=== PATIENT | male | born 1945 | race Caucasian/White ===

== ENCOUNTER 2020-04-10 09:45 | Emergency (ER) | payer MEDICARE, BC, SELFPAY ==
[2020-04-10] VITALS (7 sets, daily range): BP systolic 134–159; BP diastolic 71–87; PULSE 59–66; RESP 17–22; TEMP 36.6; O2SAT 96–98
--- NOTE | ~2020-04-10 | XR_ITS ---
EXAMINATION: XR chest 1V portable DATE: 04/10/2020 11:02 INDICATION: Chest pain. TECHNIQUE: A single frontal view of the chest was obtained. COMPARISON: Chest single view 07/01/2017, chest CT 12/22/2014 FINDINGS: There is no pneumonia or pneumothorax. There is a chronic small left pleural effusion. Card iomegaly is noted. Median sternotomy wires are noted. IMPRESSION: 1. Chronic small left pleural effusion. 2. Cardiomegaly. Reviewed, dictated and finalized at location A.
--- NOTE | 2020-04-10 10:21 | ECG_ITS ---
Measurements Intervals [place] Rate: 66 P: -12 VT: 191 QRS: -56 QRSD: 128 T: 71 QT: 407 QTc: 429 Interpretive Statements SINUS RHYTHM LEFT ANTERIOR FASCICULAR BLOCK BORDERLINE ST-T WAVE ABNORMALITY- HIGH LATERAL LEADS ABNORMAL ECG Electronically Signed On 04-10-2020 11:11:30 CDT by Anjel Murray D.O.
[2020-04-10] MEDS: LIDOCAINE HCL 2% VISC SOLN 15 ML UDC 20 ML PO (11:39)
[2020-04-10] MEDS: MAG HYDROX/AL HYDROX/SIMETH 30 ML UDC PO (11:39)
--- NOTE | 2020-04-10 11:43 | ED.CHESTPAIN ---
HPI - Chest Pain General Chief Complaint: Chest Pain Stated Complaint: chest pain Time Seen by Provider: 04/10/20 10:10 Source: patient, family and old records reviewed Mode of arrival: ambulatory Limitations: no limitations History of Present Illness HPI narrative: Patient is a 74-year-old male who presents with right-sided chest pain and discomfort now for over a week that is remained constant for the last 48 hours patient denies similar occurrence in the past notes that he did have a normal cardiac catheterization in 2018 and is followed by cardiology at [facility]. Patient notes that in the past he had had a incidence that was found to be gas pains as a similar occurrence potentially. Pain comes and goes and radiates to the back. Patient denies any dyspnea injury trauma or recent illness and is resting comfortably in the room otherwise in no distress upon arrival Related Data Home Medications Medication Instructions Recorded Confirmed albuterol sulfate 90 mcg/actuation 1 inhalation INHALATION Q4H 06/12/19 12/10/19 aerosol inhaler ascorbic acid (vitamin C) 1,000 mg 1 gm PO DAILY 06/12/19 12/10/19 tablet aspirin 325 mg tablet 325 mg PO DAILY 06/12/19 12/10/19 calcium carbonate 600 mg calcium 600 mg PO DAILY 06/12/19 12/10/19 (1,500 mg) tablet ergocalciferol (vitamin D2) 10 mcg 400 unit PO DAILY 06/12/19 12/10/19 (400 unit) tablet multivitamin 1 tablet PO DAILY 06/12/19 12/10/19 mirabegron 50 mg tablet,extended 50 mg PO DAILY 06/13/19 12/10/19 release 24 hr Allergies Allergy/AdvReac Type Severity Reaction Status Date / Time midazolam Allergy Severe HALLUCINATI Verified 04/10/20 11:21 ONS amitriptyline Allergy Unknown unknown Verified 04/10/20 11:21 hydrocodone Allergy Unknown unknown Verified 04/10/20 11:21 tramadol Allergy Unknown Itching Verified 12/10/19 08:35 Review of Systems Review of Systems: All systems reviewed & are unremarkable except as noted in HPI and below PMFSH Past Medical History Medical History (Updated 04/10/20 @ 13:47 by Bravo Gore PA-C) Adult hypothyroidism Chest pain COPD (chronic obstructive pulmonary disease) HERACLIO (obstructive sleep apnea) Surgical History Surgical History (Updated 04/10/20 @ 11:44 by Bravo Gore PA-C) History of cardiac catheterization Family History Family History Father Family history of heart disease in male family member before age 55 Diabetes mellitus Family history of coronary artery disease Mother Family history of heart disease in male family member before age 55 Diabetes mellitus Family history of bronchitis Family history of coronary artery disease Family history of malignant neoplasm of breast in first degree relative Sibling Patient's sister is in good health Family history of coronary artery disease Social History Social History Smoking status: Former smoker Smoking end date: 06/27/74 Alcohol intake: current Gender identity (if verbalized by the patient): Male Exam Narrative: Exam Narrative: GENERAL: Well-appearing, well-nourished, and in no acute distress. HEAD: Normocephalic, atraumatic. EYES: PERRLA and EOMI. ENT: Nares clear, no rhinorrhea or epistaxis. Mucous membranes moist. Oropharynx without tonsillar hypertrophy exudate or other lesions. NECK: Supple. No adenopathy or masses. No carotid bruits or JVD CHEST: Clear to auscultation. No respiratory distress. No wheezes rales or rhonchi HEART: Regular rate and rhythm. No murmur heard. Normal peripheral pulses. ABDOMEN: Soft, nontender, nondistended EXTREMITIES: Normal range of motion. 1+ edema lower extremities SKIN: Warm, dry, no rash. NEURO: No focal deficits. Alert and oriented x3. Cranial nerves II through XII grossly intact PSYCH: Normal mood and affect. Course Course Emergency Course: Patient
[2020-04-10 12:04] LABS: Basophils Percent Auto 0.4 % (0.2-1.2); Eosinophils Absolute Auto 0.3 K/mm3 (0-0.3); Eosinophils Percent Auto 4.1 % (0-4.4); Hematocrit 37.1 % (42.0-52.0); Hemoglobin 12.3 g/dL (14.0-18.0); Immature Granulocyte Absolute 0.03 K/mm3 (0.00-0.031); Immature Granulocyte Percent A 0.4 % (0-0.5); Lymphocytes Absolute Auto 2.05 K/mm3 (0.9-3.2); Lymphocytes Percent Auto 25.7 % (18.3-44.2); Mean Corpuscular HGB Conc 33.2 g/dl (32-36); Mean Corpuscular Hemoglobin 29.4 pg (26-34); Mean Corpuscular Volume 88.5 fl (80-100); Monocytes Absolute Auto 0.7 K/mm3 (0.1-0.6); Monocytes Percent Auto 8.3 % (2.6-8.5); Neutrophils Absolute Auto 4.9 K/mm3 (1.3-6.7); Neutrophils Percent Auto 61.1 % (45.5-73.1); Platelet Count Result 242 k/mm3 (150-375); Red Blood Count 4.19 M/mm3 (4.6-6.20); Red Cell Distribution Width 13.7 % (11.5-14.5)
[2020-04-10 12:15] LABS: Partial Thromboplastin Time 26.2 SECONDS (22.3-36.8); Prothrombin Time 13.3 Seconds (11.1-14.7)
[2020-04-10 12:17] LABS: Alanine Aminotransferase 16 U/L (4-50); Albumin Level 4.2 g/dL (3.5-5.1); Alkaline Phosphatase 69 U/L (38-126); Anion Gap 10 mmol/L (8-16); Aspartate Amino Transferase 16 U/L (17-59); Bilirubin,Total 0.5 mg/dL (0.2-1.3); Blood Urea Nitrogen 20 mg/dL (9-20); Calcium 9.6 mg/dL (8.4-10.2); Carbon Dioxide 25 mmol/L (22-30); Chloride 102 mmol/L (98-107); Estimated CRCL calculation 67 ml/min; Estimated Glomerular Filt Rate > 60; Glucose 126 mg/dL (75-110); Lipase 13 U/L (23-300); Potassium 4.7 mmol/L (3.4-5.0); Sodium 137 mmol/L (137-145)
[2020-04-10 12:18] LABS: D Dimer 0.48 ug/mL (<0.48)
[2020-04-10 12:28] LABS: NT Pro B Type Natriuretic Pept 552 PG/ML (5-100); Troponin I < 0.012 ng/mL (0.000-0.034)
[2020-04-10 12:57] LABS: Add Urine Microscopic? YES; Appearance Urine Clear (Clear); Bilirubin Urine Negative (Negative); Blood Urine Negative (Negative); Color Urine Yellow (Yellow); Glucose Urine UA Negative (Negative); Ketones Urine Trace mg/dL (Negative); Leukocyte Esterase Ur Negative LEU/UL (Negative); Mucus Urine Rare /lpf; Nitrate Urine Negative (Negative); Protein Urine Negative (Negative); RBC Urine 0-2 /hpf (0-2); Specific Grav Ur 1.027 (1.001-1.035); WBC Urine 0-3 /hpf
== END 2020-04-10 14:05 | disposition home or self-care (01) ==
PROVIDERS: Emergency Medicine Emergency Medical Services; Emergency Provider Emergency Medicine; PCP Internal Medicine
DX: R07.9 Chest pain, unspecified (principal); Z79.82 Long term (current) use of aspirin; E03.9 Hypothyroidism, unspecified; J44.9 Chronic obstructive pulmonary disease, unspecified; G47.33 Obstructive sleep apnea (adult) (pediatric); Z87.891 Personal history of nicotine dependence; I51.7 Cardiomegaly; I44.4 Left anterior fascicular block; R94.31 Abnormal electrocardiogram [ECG] [EKG]
CPT/HCPCS: 36415; 71045; 80053; 81001; 83690; 83880; 84484; 85025; 85380; 85610; 85730; 93005; 99284; A9270

== ENCOUNTER 2021-09-18 08:00 | Outpatient (RCR) | payer MEDICARE, BC, SELFPAY ==
[2021-09-18] MEDS: diphenhydrAMINE HCl CAP 25 MG CAPSULE PO (13:56)
[2021-09-18] MEDS: FAMOTIDINE 20 MG TABLET PO (13:56)
[2021-09-18] MEDS: ACETAMINOPHEN 325 MG TABLET 650 MG PO (13:56)
[2021-09-18 14:03] VITALS: BP 142/56; PULSE 71; TEMP 37.3; O2SAT 97
[2021-09-18 15:33] VITALS: BP 126/67; PULSE 76; O2SAT 97
== END 2021-09-18 16:00 ==
LOC: AMCINF 08:00
PROVIDERS: PCP Internal Medicine; Referring Provider Internal Medicine; Visit Provider Internal Medicine Hematology & Oncology
DX: U07.1 COVID-19 (principal); E11.9 Type 2 diabetes mellitus without complications
CPT/HCPCS: A9270; M0247; Q0247

== ENCOUNTER 2022-08-27 11:32 | Outpatient (CLI) | payer MEDICARE, BC, SELFPAY ==
--- NOTE | ~2022-08-27 | MR_ITS ---
EXAMINATION: MR brain/brain stem wo/w con DATE: 08/27/2022 12:57 INDICATION: Cognitive changes. Altered mental status. Weakness. TECHNIQUE: Magnetic resonance imaging (MRI) of the brain and brainstem was performed without and with 19 mL MultiHance intravenous contrast. COMPARISON: Head CT 04/04/2017 FINDINGS: There are scattered areas of nonspecific increased T2-weighted signal intensity in the cere bral white matter. There is no intracranial hemorrhage, acute infarction, or abnormal intracranial ma ss lesion. The ventricles are normal in size. Cavum septum pellucidum is noted. There is mild mucosal thickening in the paranasal sinuses. There are small mastoid effusions. There are likely changes of ocular lens replacement surgeries. IMPRESSION: 1. Mild nonspecific cerebral white matter disease, which likely represents chronic small vessel ische bishnu disease. Reviewed, dictated and finalized at location A. RUCTIONAL DEVELOPER IMPRESSION: 1. 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
--- NOTE | ~2022-08-27 | CT_ITS ---
EXAMINATION: CT chest abdomen pelvis w con DATE: 08/27/2022 12:16 INDICATION: Weight loss. TECHNIQUE: Computed tomography (CT) of the chest, abdomen, and pelvis was performed with 100 mL Omnip aque 350 intravenous contrast. Automated exposure control and iterative reconstruction technique were employed. The dose-length product was 1468.93 mGy-cm. COMPARISON: Chest CT 12/22/2014, CT abdomen and pelvis 11/21/08 FINDINGS: CHEST CT: There are moderate-sized right and small left pleural effusions. There is dependent atelectasis on th e right. There are calcified pleural plaques bilaterally. There is pleural thickening on the left. Ca rdiomegaly is noted. There are coronary artery calcifications. No pericardial effusion. There are cole nges of coronary artery bypass grafting. There are bridging endplate osteophytes at multiple levels i n the spine, consistent with diffuse idiopathic skeletal hyperostosis (DISH). There is moderate thora cic spondylosis. ABDOMEN/PELVIS CT: The liver is normal. There are changes of cholecystectomy. Calcifications in the spleen are consisten t with old granulomatous disease. The pancreas, adrenal glands, and kidneys are normal. There is dive rticulosis of the colon without evidence of diverticulitis. There is fat stranding around an epiploic appendage of sigmoid colon, consistent with fat necrosis. The appendix is normal. There are no dilat ed loops of bowel. There are no pathologically enlarged lymph nodes. There is no free intraperitoneal fluid. There is calcified atherosclerosis of the aorta and many of the other arteries. There is no s ignificant stenosis of celiac axis, superior mesenteric artery, the renal arteries, or inferior mesen teric artery. There is severe lower lumbar spondylosis. IMPRESSION: 1. Moderate-sized right pleural effusion. 2. Chronic small left pleural effusion with chronic pleural thickening. Reviewed, dictated and finalized at location A. CONTROL CHEMICAL TECHNICIAN
[2022-08-27 12:09] LABS: Estimated Glomerular Filt Rate 59
== END 2022-08-27 11:33 | disposition home or self-care (01) ==
PROVIDERS: PCP Internal Medicine; Visit Provider Internal Medicine
DX: R63.4 Abnormal weight loss (principal); R41.3 Other amnesia; R41.89 Other symptoms and signs involving cognitive functions and awareness; R93.0 Abnormal findings on diagnostic imaging of skull and head, not elsewhere classified; J90 Pleural effusion, not elsewhere classified
CPT/HCPCS: 70553; 71260; 74177; A9577; Q9967

== ENCOUNTER 2022-09-01 08:46 | Outpatient (CLI) | payer MEDICARE, BC, SELFPAY ==
--- NOTE | ~2022-09-01 | XR_ITS ---
EXAMINATION: XR UGI w small bowel DATE: 09/01/2022 14:03 INDICATION: Nausea with vomiting TECHNIQUE: The patient drank thick barium, gas-producing crystals, and thin barium. Conventional supi ne abdomen radiographs and fluoroscopic spot radiographs of the esophagus, stomach, and proximal smal l bowel were obtained. Additional overhead radiographs were obtained during the transit through the s mall bowel. Spot fluoroscopic images of the small bowel were obtained upon contrast reaching the cec um. A total of 829 fluoroscopic images and 10 overhead radiographs were obtained. Fluoroscopy exposur e time was 1.8 minutes. Total DAP was 89.044 Gycm^2. COMPARISON: CT chest, abdomen and pelvis dated 08/27/2021 FINDINGS: Large amount of coughing patient was given the effervescent crystals for the double contrast portion of the evaluation suggesting there is likely some aspiration but which the absence of with associated medial cannot be confirmed fluoroscopically given the radiolucency of the effervescent liquid. No ev ident laryngeal penetration or aspiration evident on the following swallow performed with thin barium . The esophagus is normal without mass or stricture. Esophageal motility is normal. There is no hiata l hernia. There was no gastroesophageal reflux with provocative maneuvers. The stomach and proximal s mall bowel are normal. Transit time from the stomach to proximal colon was approximately 3 hours and 30 minutes. There is no rmal caliber and mucosal fold pattern throughout the small bowel. Terminal ileum is normal. IMPRESSION: 1. Significant degenerative coughing elicited after swallowing effervescent crystals suggesting this results from aspiration although no subsequent aspiration was observed an following swallows with bar ium. Per discussion with the patient this is atypical. If there is clinical concern for recurrent asp iration could consider a modified swallow study performed in conjunction with speech pathology for fu rther evaluation. 2. Otherwise unremarkable upper GI and small bowel follow-through study. Reviewed, dictated and finalized at location A. ENDER IMPRESSION: 1. Significant degenerative coughing elicited after swallowing effervescent cry stals suggesting this results from aspiration although no subsequent aspiration was observed an following swallows with barium. Per discussion with the patien t this is atypical. If there is clinical concern for recurrent aspiration could consider a modified swallow study performed in conjunction with speech patholo gy for further evaluation. 2. Otherwise unremarkable upper GI and small bowel follow-through study.
== END 2022-09-01 08:47 | disposition home or self-care (01) ==
PROVIDERS: PCP Internal Medicine; Visit Provider Internal Medicine
DX: R11.2 Nausea with vomiting, unspecified (principal); R63.4 Abnormal weight loss; R68.81 Early satiety
CPT/HCPCS: 74240; 74248

== ENCOUNTER 2022-09-27 13:21 | Inpatient (IN) | payer MEDICARE, BC, SELFPAY ==
[2022-09-27] VITALS (11 sets, daily range): BP systolic 125–146; BP diastolic 61–114; PULSE 75–108; RESP 16–40; TEMP 36.7–37.2; O2SAT 95–100
--- NOTE | ~2022-09-27 | XR_ITS ---
EXAMINATION: XR chest 2V DATE: 09/27/2022 14:29 INDICATION: Chest pain and shortness of breath TECHNIQUE: AP and lateral views of the chest are obtained. COMPARISON: 04/10/2020 FINDINGS: Cardiomegaly is noted. There are small pleural effusions. Associated bibasilar airspace [place] cities likely reflect atelectasis. No pneumothorax is identified. There is a mild diffuse interstitia l pattern. Median sternotomy wires and mediastinal surgical clips are seen, likely from prior coronar y artery bypass grafting. There is moderate thoracic spondylosis. IMPRESSION: 1. Cardiomegaly with pulmonary edema. 2. Small pleural effusions with probable associated passive atelectasis of the lung bases. Reviewed, dictated and finalized at location B.
--- NOTE | ~2022-09-27 | XR_ITS ---
EXAMINATION: XR chest 1V portable INDICATION: Pleural effusion TECHNIQUE: Portable AP chest at 0758 hours COMPARISON: 09/28/2022 FINDINGS: Small pleural effusions persist without significant change. No pneumothorax is identified. Cardiomegaly is noted. There is mild atelectasis of the lung bases. Median sternotomy wires and media stinal surgical clips are seen, likely from prior coronary artery bypass grafting. IMPRESSION: 1. Small pleural effusions, stable. Reviewed, dictated and finalized at location B.
--- NOTE | ~2022-09-27 | US_ITS ---
EXAMINATION: US thoracentesis DATE: 09/28/2022 13:58 INDICATION: pleural effusion TECHNIQUE: The procedure and its risks, benefits, and alternatives were discussed with the patient. P otential risks discussed included bleeding, infection, and pneumothorax. The patient understood the r isks and agreed to proceed. The skin was prepped and draped in sterile fashion. 1% lidocaine was used for local anesthesia. Under ultrasound guidance, a 5 Fr catheter with trochar was advanced into the right pleural effusion. Fluid was aspirated. The catheter was removed, and a dressing was applied. Th ere were no immediate complications. FINDINGS: Ultrasound images demonstrate a right pleural effusion and the catheter within the fluid. IMPRESSION: 1. Successful ultrasound-guided thoracentesis yielding 1000 mL of ezra-colored fluid. Reviewed, dictated and finalized at location A. IMPRESSION: 1. Successful ultrasound-guided thoracentesis yielding 1000 mL of ezra-colore d fluid.
--- NOTE | ~2022-09-27 | XR_ITS ---
EXAMINATION: [id number] DATE: 09/28/2022 13:50 INDICATION: Right pleural effusion status post thoracentesis. TECHNIQUE: A single frontal view of the chest was obtained. COMPARISON: Chest 2 views 09/27/2022, chest CT 08/27/2022 FINDINGS: There are small pleural effusions. No pneumonia or pneumothorax. Cardiomegaly is noted. Med iraj sternotomy wires and mediastinal surgical clips are seen, likely from prior coronary artery bypas s grafting. IMPRESSION: 1. Small pleural effusions with improvement on the right status post thoracentesis. Reviewed, dictated and finalized at location A. IMPRESSION: 1. Small pleural effusions with improvement on the right status post thoracente sis.
--- NOTE | 2022-09-27 13:22 | ECG_ITS ---
Measurements Intervals [place] Rate: 82 P: AK: 0 QRS: -52 QRSD: 121 T: 80 QT: 383 QTc: 450 Interpretive Statements ATRIAL FLUTTER/TACHYCARDIA WITH ABERRANT CONDUCTION OR VENTRICULAR PREMATURE COMPLEXES POSSIBLE RIGHT VENTRICULAR CONDUCTION DELAY [RSR (QR) IN V1/V2] LEFT ANTERIOR FASCICULAR BLOCK [QRS AXIS <= -45, QR IN I, RS IN II] POSSIBLE ANTERIOR MYOCARDIAL INFARCTION , OF INDETERMINATE AGE [30 ms Q WAVE IN V3/V4, OR R < 0.2 mV IN V4] COMPARED TO ECG 04/10/2020 10:02:31 ATRIAL FLUTTER NOW PRESENT ABERRANT CONDUCTION OF SUPRAVENTRICULAR BEAT(S) NOW PRESENT Electronically Signed On 09-28-2022 14:58:16 CDT by Elzbieta Stuart M.D.
[2022-09-27 13:55] LABS: Basophils Percent Auto 0.2 % (0.2-1.2); Eosinophils Absolute Auto 0.3 K/mm3 (0-0.3); Hematocrit 38.7 % (42.0-52.0); Hemoglobin 12.1 g/dL (14.0-18.0); Immature Granulocyte Absolute 0.02 K/mm3 (0.00-0.031); Immature Granulocyte Percent A 0.2 % (0-0.5); Lymphocytes Absolute Auto 1.57 K/mm3 (0.9-3.2); Lymphocytes Percent Auto 18.7 % (18.3-44.2); Mean Corpuscular HGB Conc 31.3 g/dl (32-36); Mean Corpuscular Hemoglobin 27.6 pg (26-34); Mean Corpuscular Volume 88.2 fl (80-100); Mean Platelet Volume 10.4 fl (7.4-10.4); Monocytes Absolute Auto 0.8 K/mm3 (0.1-0.6); Monocytes Percent Auto 9.7 % (2.6-8.5); Neutrophils Absolute Auto 5.7 K/mm3 (1.3-6.7); Neutrophils Percent Auto 68.2 % (45.5-73.1); Platelet Count Result 223 k/mm3 (150-375); Red Blood Count 4.39 M/mm3 (4.6-6.20); Red Cell Distribution Width 16.5 % (11.5-14.5); White Blood Count 8.4 K/mm3 (4.5-10.0)
[2022-09-27 14:05] LABS: INR 1.2; Partial Thromboplastin Time 28.6 SECONDS (22.3-36.8); Prothrombin Time 14.7 Seconds (11.1-14.7)
[2022-09-27 14:06] LABS: Alanine Aminotransferase 24 U/L (6-50); Albumin Level 4.4 g/dL (3.5-5.1); Alkaline Phosphatase 99 U/L (38-126); Anion Gap 9 mmol/L (8-16); Aspartate Amino Transferase 28 U/L (17-59); Bilirubin,Total 0.9 mg/dL (0.2-1.3); Blood Urea Nitrogen 14 mg/dL (9-20); Calcium 9.5 mg/dL (8.4-10.2); Carbon Dioxide 28 mmol/L (22-30); Chloride 103 mmol/L (98-107); Estimated CRCL calculation 66 ml/min; Estimated Glomerular Filt Rate > 60; Glucose 107 mg/dL (65-110); Lipase 20 U/L (23-300); Potassium 4.2 mmol/L (3.4-5.0); Sodium 140 mmol/L (137-145)
[2022-09-27 14:18] LABS: Troponin I 0.019 ng/mL (0.000-0.034)
--- NOTE | 2022-09-27 15:40 | ED.CHESTPAIN ---
HPI - Chest Pain General Chief Complaint: Chest Pain Stated Complaint: chest pain x3 days-pleural effusion Time Seen by Provider: 09/27/22 15:31 Source: patient History of Present Illness HPI narrative: 76 years old white male came from home by private car with his complaining of upper chest pain, across the chest, sharp, constant, better laying down flat for the last 3 days. Patient also complaining of shortness of breath on exertion, weight loss for the last 1 to 2 months. Is scheduled for thoracentesis because of large right pleural effusion. He denies any fever, chills, nausea, vomiting, headache or back pain Related Data Home Medications Medication Instructions Recorded Confirmed albuterol sulfate 90 mcg/actuation 1 inhalation inhalation Q4H PRN 06/12/19 09/24/22 aerosol inhaler (ProAir HFA) Dyspnea aspirin 325 mg tablet 325 mg PO DAILY 06/12/19 09/24/22 calcium carbonate 600 mg calcium 600 mg PO DAILY 06/12/19 09/24/22 (1,500 mg) tablet multivitamin 1 tablet PO DAILY 06/12/19 09/24/22 vibegron 75 mg tablet (Gemtesa) 75 mg PO DAILY 12/08/21 09/24/22 mecobalamin (vitamin B12) 1,000 1,000 mcg sublingual DAILY 08/19/22 09/24/22 mcg disintegrating tablet,sublingual ascorbic acid (vitamin C) 1,500 mg 1 tablet PO DAILY 09/24/22 09/24/22 tablet ibuprofen 800 mg tablet See Rx Instructions .Route 09/24/22 09/24/22 .COMPLEX PRN Pain levothyroxine 150 mcg tablet 150 mcg PO HS 09/24/22 09/24/22 (Synthroid) omega-3 fatty acids-vitamin E 2 cap PO BID 09/24/22 09/24/22 1,000 mg capsule ondansetron HCl 8 mg tablet 8 mg PO QID PRN Nausea 09/24/22 09/24/22 Allergies Allergy/AdvReac Type Severity Reaction Status Date / Time amitriptyline Allergy Unknown unknown Verified 09/27/22 15:57 midazolam AdvReac Severe HALLUCINATI Verified 09/27/22 15:57 ONS Review of Systems Review of Systems: All systems reviewed & are unremarkable except as noted in HPI and below PMFSH Past Medical History Medical History Adult hypothyroidism BMI 28.0-28.9,adult BMI 29.0-29.9,adult Chest pain COPD (chronic obstructive pulmonary disease) Encounter to establish care Fatigue Follow up Impaired functional mobility, balance, gait, and endurance Orthostatic hypotension HERACLIO (obstructive sleep apnea) HERACLIO on CPAP Unintentional weight loss Surgical History Surgical History History of cardiac catheterization Family History Family History Father Family history of heart disease in male family member before age 55 Diabetes mellitus Family history of coronary artery disease Mother Family history of heart disease in male family member before age 55 Diabetes mellitus Family history of bronchitis Family history of coronary artery disease Family history of malignant neoplasm of breast in first degree relative Sibling Patient's sister is in good health Family history of coronary artery disease Social History Social History Smoking packs per day: 0.15 Smoking cigarettes per day: 3.0 Years smoked: 15 Smoking pack-years: 2.25 Smoking status: Former smoker Tobacco type: cigarettes Second hand tobacco smoke exposure: No Smoking end date: 06/27/74 Alcohol intake: current Substance use: never Lack of Transportation: No Lack of Food: Never True Current Housing: I Have Housing Concerned About Future Housing: No Difficulty Paying Gas/Electric Bills: No Difficulty Paying for Meds: No Currently Unemployed: No Education: Associate Degree Difficulty w/ Childcare or Family Care: No Gender identity (if verbalized by the patient): Male Exam Narrative: General appearance: Well-developed, well-nourished Skin: Normal color Head: Normocephalic, nontraumatic
[2022-09-27 17:16] LABS: NT Pro B Type Natriuretic Pept 1590 pg/mL (19.9-100)
[2022-09-27 17:18] LABS: Troponin I 0.023 ng/mL (0.000-0.034)
[2022-09-27] MEDS: NITROGLYCERIN OINTMENT 1 INCH DOSE TRANSDERM (17:30)
[2022-09-27] MEDS: FUROSEMIDE INJ 40 MG/4 ML VIAL 60 MG IV PUSH (17:30)
--- NOTE | 2022-09-27 19:22 | PM.IMHP ---
H&P: HPI History of Present Illness Date/Time: 09/27/22 19:22 Chief Complaint: Chest pain for 3 days/pleural effusion Narrative: This is a 76-year-old male patient who has a known pleural effusion and stated that he is due for thoracentesis on . The patient came in by private car with complaints of upper chest pain that is sharp and constant. It is better when he lays flat for the last 3 days. He is short of breath on exertion. He has had a weight loss for the last month or 2. Patient has had a thoracentesis in the past many years ago. He denies any fever chills. His H&H is 12.1 and 38.7. This is his baseline. Troponin is negative x3. BNP is 1590. Chest x-ray was read as cardiomegaly with pulmonary edema. Small pleural effusions with probable associated passive atelectasis of the lung bases. Patient had abdominal pelvis chest CT read on 08/27/2022 as moderate size right pleural effusion. Chronic a small left pleural effusion with chronic pleural thickening. The patient is afebrile here and is oxygen level was anywhere from 98-100% on room air. The patient was given aspirin Lasix and nitro. The patient is being admitted to observation status on the date of service of 09/27/2022 Review of Systems Review of Systems: All systems reviewed & are unremarkable except as noted in HPI and below Constitutional: Constitutional: Reports as per HPI and Reports no additional constitutional complaints Eyes: Eyes: Reports as per HPI and Reports no additional eye complaints ENT: Reports system reviewed and no additional complaints, except as documented and Reports Normal hearing present Cardiovascular: Cardiovascular: Reports no additional cardiovascular complaints Respiratory: Respiratory: Reports no additional respiratory complaints and Reports no additional respiratory complaints Gastrointestinal: Gastrointestinal: Reports as per HPI and Reports no additional gastrointestinal complaints Musculoskeletal: Musculoskeletal: Reports no additional musculoskeletal complaints Integumentary/Breasts: Skin/Breast: Reports system reviewed and no additional complaints, except as docu and Reports as per HPI Neurologic: Reports system reviewed and no additional complaints, except as documented, Reports as per HPI and Reports Normal hearing present Psychiatric: Psychiatric: Reports no additional psychiatric complaints and Reports as per HPI Endocrine: Endocrine: Reports no additional endocrine complaints Hematologic/Lymphatic: Hematologic/Lymphatic: Reports no additional hematologic/lymphatic complaints Allergic/Immunologic: Allergic/Immunologic: Reports no additional allergic/immunologic complaints [facility] Past Medical History Medical History (Updated 09/27/22 @ 23:14 by Jihan Sanches NP) Adult hypothyroidism BMI 28.0-28.9,adult BMI 29.0-29.9,adult Chest pain COPD (chronic obstructive pulmonary disease) Encounter to establish care Fatigue Follow up Impaired functional mobility, balance, gait, and endurance Orthostatic hypotension HERACLIO (obstructive sleep apnea) HERACLIO on CPAP Unintentional weight loss Surgical History Surgical History (Updated 09/27/22 @ 22:54 by Jihan Sanches NP) H/O cataract extraction History of cardiac catheterization History of tonsillectomy History of total bilateral knee replacement (TKR) Hx of cholecystectomy Family History Family History Father Family history of heart disease in male family member before age 55 Diabetes mellitus Family history of coronary artery disease Mother Family history of heart disease in male family member before age 55 Diabetes mellitus Family history of bronchitis Family history of coronary artery disease Family history of malignant neoplasm of breast in first degree relative Sibling Patient's sister is in good health Family history of coronary artery disease Social History Social Hist
--- NOTE | 2022-09-27 19:54 | ADMGEN ---
This patient, Aly Bacon Sr., was admitted to Medical Room 257-01. Patient/family oriented to hospital policies and general routines including ID bracelet, bed and alarms, visiting hours, pain management, procedures, bathroom and other care routines, personal items, smoking policy, room service/diet, and visiting hours. Information on how to activate the Rapid Response Team has been discussed. Patient/Family are encouraged to report perceived risks to care and to ask questions if they do not understand what they are told or what they should do.
[2022-09-27 20:32] LABS: Troponin I 0.028 ng/mL (0.000-0.034)
[2022-09-27] MEDS: FUROSEMIDE INJ 40 MG/4 ML VIAL IV PUSH (20:41)
[2022-09-27] MEDS: ATORVASTATIN 40 MG TABLET 80 MG BY MOUTH (23:52)
[2022-09-27] MEDS: TAMSULOSIN HCL 0.4 MG CAPSULE BY MOUTH (23:52)
[2022-09-28] VITALS (16 sets, daily range): BP systolic 100–124; BP diastolic 63–78; PULSE 72–92; RESP 15–18; TEMP 36.2–36.7; O2SAT 93–97; BMI 29.5
--- NOTE | 2022-09-28 | ECHO_ITS ---
Patient Info Name: Aly Bacon Age: 76 years : 1945 Gender: Male Ht: 69 in Wt: 200 lbs BSA: 2.12 m2 HR: 82 bpm BP: 122 / 70 mmHg Heart Rhythm: Atrial Flutter Exam Date: 09/28/2022 10:01 AM Exam Location: [facility] Pulmonary Patient Status: Inpatient Admit Date: 09/27/2022 Staff Ordering Physician: Jihan Sanches NP Exchange Clerk: Marcelino Wallcae, NIDA, RT Attending Provider: India Sullivan MD Referring Physician: Verónica GOLDSMITH; Exam Type: CA echo dop color flow w con Study Info Indications J90 - Pleural effusion, not elsewhere classified Complete two-dimensional, color flow and Doppler transthoracic echocardiogram is performed. Strain analysis performed. Summary 1. Complete two-dimensional, color flow and Doppler transthoracic echocardiogram is performed. 2. Left ventricular chamber dimension is normal. 3. Left ventricular systolic function is mildly reduced, estimated at 45-50%. 4. There is mildly increased left ventricular wall thickness. 5. Left ventricular septal wall motion is abnormal with septal motion related to a post-operative state. 6. Global longitudinal strain is abnormal at -10 %. 7. Right ventricular systolic function is reduced. 8. Left atrial chamber dimension is moderately enlarged. 9. Right atrial chamber dimension is mildly enlarged. 10. There is moderate mitral valve regurgitation. 11. There is mild tricuspid valve regurgitation. Left Ventricle Left ventricular chamber dimension is normal. Left ventricular systolic function is mildly reduced, estimated at 45-50%. There is mildly increased left ventricular wall thickness. Left ventricular septal wall motion is abnormal with septal motion related to a post-operative state. Global longitudinal strain is abnormal at -10 %. Right Ventricle Right ventricular chamber dimension is normal. Right ventricular systolic function is reduced. Left Atria Left atrial chamber dimension is moderately enlarged. Right Atria Right atrial chamber dimension is mildly enlarged. Atrial Septum Intact interatrial septum visualized by color flow imaging. Aortic Valve The aortic valve is probable trileaflet. There is mild aortic valve sclerosis. There is no aortic valve stenosis. There is no aortic valve regurgitation. Pulmonic Valve The pulmonic valve is not well visualized. Mitral Valve The mitral valve has normal leaflets. There is moderate mitral valve regurgitation. Tricuspid Valve There is mild tricuspid valve regurgitation. Pericardium/Pleural There is no pericardial effusion. Aorta The aortic root size at the sinus of Valsalva is normal. Left Ventricular Outflow Tract Name Value Normal LVOT 2D LVOT Diameter 2.14 cm LVOT Doppler LVOT Peak Gradient 2 mmHg LVOT Mean Gradient 1 mmHg LVOT VTI 10.50 cm LVOT VTI/AV VTI Ratio 0.72 LVOT Stroke Volume 37.63 ml LVOT CO 2.90 l/min LVOT CI 1.36 L/min/
--- NOTE | 2022-09-28 | ECG_ITS ---
Measurements Intervals [place] Rate: 83 P: DE: 0 QRS: -52 QRSD: 134 T: 120 QT: 389 QTc: 458 Interpretive Statements ATRIAL FLUTTER/TACHYCARDIA WITH ABERRANT CONDUCTION OR VENTRICULAR PREMATURE COMPLEXES INTRAVENTRICULAR CONDUCTION DELAY [130+ ms QRS DURATION] COMPARED TO ECG 09/27/2022 13:38:29 NO SIGNIFICANT CHANGES Electronically Signed On 09-28-2022 16:07:35 CDT by Elzbieta Stuart M.D.
[2022-09-28] MEDS: ACETAMINOPHEN 325 MG TABLET 650 MG PO ×4 (01:10→20:01)
[2022-09-28] MEDS: LEVOTHYROXINE SODIUM 150 MCG TABLET PO (05:31)
[2022-09-28 05:50] LABS: Basophils Percent Auto 0.3 % (0.2-1.2); Eosinophils Absolute Auto 0.2 K/mm3 (0-0.3); Eosinophils Percent Auto 2.4 % (0-4.4); Hematocrit 38.5 % (42.0-52.0); Hemoglobin 12.1 g/dL (14.0-18.0); Immature Granulocyte Absolute 0.02 K/mm3 (0.00-0.031); Immature Granulocyte Percent A 0.3 % (0-0.5); Lymphocytes Absolute Auto 1.53 K/mm3 (0.9-3.2); Lymphocytes Percent Auto 21.2 % (18.3-44.2); Mean Corpuscular HGB Conc 31.4 g/dl (32-36); Mean Corpuscular Hemoglobin 26.8 pg (26-34); Mean Corpuscular Volume 85.4 fl (80-100); Mean Platelet Volume 10.4 fl (7.4-10.4); Monocytes Absolute Auto 0.6 K/mm3 (0.1-0.6); Monocytes Percent Auto 8.9 % (2.6-8.5); Neutrophils Absolute Auto 4.8 K/mm3 (1.3-6.7); Neutrophils Percent Auto 66.9 % (45.5-73.1); Platelet Count Result 218 k/mm3 (150-375); Red Blood Count 4.51 M/mm3 (4.6-6.20); Red Cell Distribution Width 16.6 % (11.5-14.5); White Blood Count 7.2 K/mm3 (4.5-10.0)
[2022-09-28 06:02] LABS: Anion Gap 9 mmol/L (8-16); Blood Urea Nitrogen 16 mg/dL (9-20); Calcium 9.3 mg/dL (8.4-10.2); Carbon Dioxide 34 mmol/L (22-30); Chloride 96 mmol/L (98-107); Estimated CRCL calculation 66 ml/min; Estimated Glomerular Filt Rate > 60; Glucose 115 mg/dL (65-110); Magnesium 1.7 mg/dL (1.6-2.3); Potassium 3.7 mmol/L (3.4-5.0); Sodium 139 mmol/L (137-145)
[2022-09-28] MEDS: FLUTICASONE/SALMETEROL 115-21 MCG INHALER 1 PUFF 2 PUFF INHALATION ×2 (07:53→20:53)
[2022-09-28] MEDS: MIDODRINE HCL 2.5 MG TABLET PO ×2 (08:40→17:24)
[2022-09-28] MEDS: FUROSEMIDE INJ 40 MG/4 ML VIAL IV PUSH ×2 (08:40→20:02)
[2022-09-28 08:41] LABS: Glucose Point of Care 119 mg/dl (65-105)
--- NOTE | 2022-09-28 09:14 | PM.CNCAR ---
Assessment and Plan Assessment and plan (1) Atrial flutter by electrocardiogram: Code(s): I48.92 - Unspecified atrial flutter Status: Acute Assessment and Plan: He is in atrial flutter with controlled ventricular rate. This is a new diagnosis; Chronicity is unknown. He denies any history of palpitations, shortness of breath. Since his rate is well controlled already, we will pursue a rate control and anticoagulation strategy. Will start him on Xarelto 20 mg nightly. Echocardiogram shows borderline LVSF, EF 45-50%. He does have reduced RV systolic function. Moderate MR. Outpatient follow-up with his established transformer assembler, Dr. Shaw . Cardiology will sign off at this time. (2) CAD (coronary artery disease): Code(s): I25.10 - Atherosclerotic heart disease of [place] coronary artery without angina pectoris Status: Acute Assessment and Plan: History of coronary artery disease as described in the HPI. He did have an angiogram in 2018 that demonstrated occlusion of all of his upper [place] vessels but patent vein grafts. His coronary disease is stable, his chest pain is very atypical and I do not think that it is related to his coronary disease. No evidence of acute coronary syndrome with negative troponins and EKG without any ST-T wave abnormalities. Continue aspirin, statin. History of Present Illness History of Present Illness Consult date/time: 09/28/22 09:14 Requesting physician: Miriam Alexander MD Consult reason: congestive heart failure Reason For Visit: Chest Pain,CHF,Atrial Flutter w/normal ventricular Narrative: Aly Bacon is a 76 year old male with coronary artery disease status post coronary artery bypass grafting in 2000 (OMID to the LAD, radial artery to the 1st and 2nd marginals, SVG to the RCA). This is a patient who came into the hospital with a chief complaint of chest pain. He states that he has been having right to left sided chest pain for about 4 days. He rates the pain at a 11/10 on the pain scale. He denies any exertional component to his chest pain, states that the onset of this pain occurred when he was inactive and sitting down. Denies any associated shortness of breath, palpitations. Denies any syncope, presyncope, or edema. Is currently, he is lying comfortably in bed and states that the pain has subsided at this point. He has not had any pain since waking up this morning. His telemetry and EKG demonstrate atrial flutter. He denies having any history of arrhythmias. Review of Systems Review of Systems: All systems reviewed & are unremarkable except as noted in HPI and below [facility] Past Medical History Medical History Adult hypothyroidism BMI 28.0-28.9,adult BMI 29.0-29.9,adult Chest pain COPD (chronic obstructive pulmonary disease) Encounter to establish care Fatigue Follow up Impaired functional mobility, balance, gait, and endurance Orthostatic hypotension HERACLIO (obstructive sleep apnea) HERACLIO on CPAP Unintentional weight loss Surgical History Surgical History H/O cataract extraction History of cardiac catheterization History of tonsillectomy History of total bilateral knee replacement (TKR) Hx of cholecystectomy Family History Family History Father Family history of heart disease in male family member before age 55 Diabetes mellitus Family history of coronary artery disease Mother Family history of heart disease in male family member before age 55 Diabetes mellitus Family history of bronchitis Family history of coronary artery disease Family history of malignant neoplasm of breast in first degree relative Sibling Patient's sister is in good health Family history of coronary artery disease Social History Social History (Reviewed 09/28/22 @ 09:18 by
[2022-09-28] MEDS: PERFLUTREN LIPID MICROSPHERES 1.5 ML VIAL DILUTED TO 10 ML TOTAL VOLUME IV PUSH (10:16)
--- NOTE | 2022-09-28 10:16 | IVDEFINITY ---
Prior to administration of IV Definity the patient was educated on the risks and benefits of the imaging enhancing agent including potential adverse side effects. The patient verbalized understanding. Allergies were verified. No exclusion criteria were identified and at least one of the following inclusion criteria were met: 1) physician request, 2) patient technically difficult to image (per the [place] [employer]ocardi[employer] guidelines of two or more segments not discernable within the apical view), or 3) questionable left ventricular function. ?
[2022-09-28 12:07] LABS: Glucose Point of Care 125 mg/dl (65-105)
[2022-09-28 14:13] LABS: pH Pleural Fluid > 7.500 (7.210-7.500)
--- NOTE | 2022-09-28 14:49 | P.PNIM_ITS ---
Progress Note: A&P Assessment and Plan (1) Chest pain at rest: Code(s): R07.9 - Chest pain, unspecified Status: Acute Assessment and Plan: Patient presents to ED on 09/27/2022 with complaints of chest pain that is better with laying down, shortness of breath on exertion, and weight loss for 1- 2 months. * Patient EKG was read as atrial flutter although insert leads it looks like it sinus rhythm. * The patient is not on any anticoagulation and his aspirin has been on hold for him to have a thoracentesis. * Patient was given Lasix and nitro in the emergency room. * His last echo was on 07/02/2017 with an EF of 50%. * Echo has been ordered Revealing EF of 45-50%, abnormal septal wall motion with septal motion related to a postoperative state, global longitudinal strain is abnormal at 10%. * Troponin negative x3 * BNP 1590 * Cardiology has been consulted (2) Atrial flutter by electrocardiogram: Code(s): I48.92 - Unspecified atrial flutter Status: Acute Assessment and Plan: * Repeat EKG showing A-flutter With rate control. * The patient had been on an aspirin but is now on hold for thoracentesis. * His rate is controlled. * Cardiology has been consulted * Cardiology recommending Xarelto 20 mg nightly. (3) CHF (congestive heart failure): Code(s): I50.9 - Heart failure, unspecified Status: Acute Assessment and Plan: * An echo has been ordered * Continue with IV Lasix (4) Pleural effusion on right: Code(s): J90 - Pleural effusion, not elsewhere classified Status: Acute Assessment and Plan: Last month the patient was found have a large right pleural effusion per CT scan in the patient is scheduled to have a thoracentesis this . I did ordered for tomorrow since the patient is in the hospital * Thoracentesis performed on 09/28/2022 * On the CT scan last month that shows a large right pleural effusion. The patient has been unintentionally losing weight. * Pleural fluid pH greater than 7.5. * Patient sees Dr. Montaño at [place]. Will request a consult. (5) COPD (chronic obstructive pulmonary disease): Qualifiers: COPD type: unspecified COPD Qualified Code(s): J44.9 - Chronic obstructive pulmonary disease, unspecified Code(s): J44.9 - Chronic obstructive pulmonary disease, unspecified Status: Acute Assessment and Plan: Continue with albuterol inhaler p.r.n.. Continue with home inhaler (6) HERACLIO (obstructive sleep apnea): Code(s): G47.33 - Obstructive sleep apnea (adult) (pediatric) Status: Acute Assessment and Plan: Continue with CPAP/BiPAP as per home setting (7) Adult hypothyroidism: Code(s): E03.9 - Hypothyroidism, unspecified Status: Acute Assessment and Plan: Check thyroid level continue with levothyroxine (8) Type 2 diabetes mellitus: Qualifiers: Diabetes mellitus complication status: without complication Diabetes mellitus detention insulin use: without detention use Qualified Code(s): E11.9 - Type 2 diabetes mellitus without complications Code(s): E11.9 - Type 2 diabetes mellitus without complications Status: Acute Assessment and Plan: Accu-Cheks AC and HS with sliding scale insulin and hypoglycemic pork (9) Essential hypertension: Code(s): I10 - Essential (primary) hyperten
--- NOTE | 2022-09-28 14:49 | PM.IMPN ---
Progress Note: A&P Assessment and Plan (1) Chest pain at rest: Code(s): R07.9 - Chest pain, unspecified Status: Acute Assessment and Plan: Patient presents to ED on 09/27/2022 with complaints of chest pain that is better with laying down, shortness of breath on exertion, and weight loss for 1-2 months. Patient EKG was read as atrial flutter although insert leads it looks like it sinus rhythm. The patient is not on any anticoagulation and his aspirin has been on hold for him to have a thoracentesis. Patient was given Lasix and nitro in the emergency room. His last echo was on 07/02/2017 with an EF of 50%. Echo has been ordered Revealing EF of 45-50%, abnormal septal wall motion with septal motion related to a postoperative state, global longitudinal strain is abnormal at 10%. Troponin negative x3 BNP 1590 Cardiology has been consulted (2) Atrial flutter by electrocardiogram: Code(s): I48.92 - Unspecified atrial flutter Status: Acute Assessment and Plan: Repeat EKG showing A-flutter With rate control. The patient had been on an aspirin but is now on hold for thoracentesis. His rate is controlled. Cardiology has been consulted Cardiology recommending Xarelto 20 mg nightly. (3) CHF (congestive heart failure): Code(s): I50.9 - Heart failure, unspecified Status: Acute Assessment and Plan: An echo has been ordered Continue with IV Lasix (4) Pleural effusion on right: Code(s): J90 - Pleural effusion, not elsewhere classified Status: Acute Assessment and Plan: Last month the patient was found have a large right pleural effusion per CT scan in the patient is scheduled to have a thoracentesis this . I did ordered for tomorrow since the patient is in the hospital Thoracentesis performed on 09/28/[address] scan last month that shows a large right pleural effusion. The patient has been unintentionally losing weight. Pleural fluid pH greater than 7.5. Patient sees Dr. Montaño at [place]. Will request a consult. (5) COPD (chronic obstructive pulmonary disease): Qualifiers: COPD type: unspecified COPD Qualified Code(s): J44.9 - Chronic obstructive pulmonary disease, unspecified Code(s): J44.9 - Chronic obstructive pulmonary disease, unspecified Status: Acute Assessment and Plan: Continue with albuterol inhaler p.r.n.. Continue with home inhaler (6) HERACLIO (obstructive sleep apnea): Code(s): G47.33 - Obstructive sleep apnea (adult) (pediatric) Status: Acute Assessment and Plan: Continue with CPAP/BiPAP as per home setting (7) Adult hypothyroidism: Code(s): E03.9 - Hypothyroidism, unspecified Status: Acute Assessment and Plan: Check thyroid level continue with levothyroxine (8) Type 2 diabetes mellitus: Qualifiers: Diabetes mellitus complication status: without complication Diabetes mellitus mcc insulin use: without petroleum terminal plant operator use Qualified Code(s): E11.9 - Type 2 diabetes mellitus without complications Code(s): E11.9 - Type 2 diabetes mellitus without complications Status: Acute Assessment and Plan: Accu-Cheks AC and HS with sliding scale insulin and hypoglycemic pork (9) Essential hypertension: Code(s): I10 - Essential (primary) hypertension Status: Acute Assessment and Plan: The patient is on midodrine for orthostatic blood pressure (10) Other and unspecified hyperlipidemia: Code(s): E78.5 - Hyperlipidemia, unspecified Status: Acute Assessment and Plan: Continue with atorvastatin (11) BPH (benign prostatic hyperplasia): Code(s): N40.0 - Benign prostatic hyperplasia without lower urinary tract symptoms Status: Acute Assessment and Plan: Continue with tamsulosin
[2022-09-28 15:53] LABS: Appearance Pleural Fluid Clear (Clear); Color Pleural Fluid Yellow (Colorless); Lymphocytes Pleural Fluid 78 %; Neutrophils Pleural Fluid 7 % (0-25); Pleural fluid source Pleural fluid
[2022-09-28 15:54] LABS: Monocytes Pleural Fluid 15 %; Nucleated Cell Pleural Fluid 494 /uL (0-1000); RBC Pleural Fluid < 2000 /uL (0-0)
[2022-09-28] MEDS: OMEGA 3 POLYUNSAT FATTY ACIDS 1 GM CAP 2 GM PO (17:23)
[2022-09-28] MEDS: RIVAROXABAN 20 MG TABLET PO (17:23)
[2022-09-28 17:28] LABS: Glucose Point of Care 181 mg/dl (65-105)
--- NOTE | 2022-09-28 18:00 | PC.NURSE ---
called to pt's room by , pt states he feels like he is going to pass out sitting on the side of the bed, assisted back to bed, VSS, resting more comfortably once back in bed, reviewed with pt and that he should rest this evening following procedure today, no acute distress noted
[2022-09-28] MEDS: PANTOPRAZOLE 40 MG TABLET PO (20:00)
[2022-09-28] MEDS: TAMSULOSIN HCL 0.4 MG CAPSULE BY MOUTH (20:01)
[2022-09-28] MEDS: ATORVASTATIN 40 MG TABLET 80 MG BY MOUTH (20:07)
[2022-09-28 20:30] LABS: Glucose Point of Care 120 mg/dl (65-105)
[2022-09-29] VITALS (9 sets, daily range): BP systolic 116–126; BP diastolic 62–66; PULSE 72–84; RESP 16–18; TEMP 36.1–36.4; O2SAT 95–96
[2022-09-29 00:13] LABS: Albumin Level 4.3 g/dL (3.5-5.1); Amylase 37 U/L (30-110); Bilirubin,Total 1.1 mg/dL (0.2-1.3); Cholesterol 109 mg/dL (0-200); Glucose 115 mg/dL (65-110); Lactate Dehydrogenase 153 U/L (120-246); Triglycerides 108 mg/dL (<150)
[2022-09-29 00:16] LABS: Hemoglobin A1C 6.1 % (<5.7)
[2022-09-29] MEDS: LEVOTHYROXINE SODIUM 150 MCG TABLET PO (06:06)
[2022-09-29 06:09] LABS: Basophils Percent Auto 0.1 % (0.2-1.2); Eosinophils Absolute Auto 0.3 K/mm3 (0-0.3); Eosinophils Percent Auto 3.3 % (0-4.4); Hemoglobin 13.5 g/dL (14.0-18.0); Immature Granulocyte Absolute 0.04 K/mm3 (0.00-0.031); Immature Granulocyte Percent A 0.5 % (0-0.5); Lymphocytes Absolute Auto 1.53 K/mm3 (0.9-3.2); Lymphocytes Percent Auto 19.3 % (18.3-44.2); Mean Corpuscular HGB Conc 31.4 g/dl (32-36); Mean Corpuscular Hemoglobin 26.8 pg (26-34); Mean Corpuscular Volume 85.3 fl (80-100); Monocytes Absolute Auto 0.7 K/mm3 (0.1-0.6); Monocytes Percent Auto 8.6 % (2.6-8.5); Neutrophils Absolute Auto 5.4 K/mm3 (1.3-6.7); Neutrophils Percent Auto 68.2 % (45.5-73.1); Platelet Count Result 256 k/mm3 (150-375); Red Blood Count 5.04 M/mm3 (4.6-6.20); Red Cell Distribution Width 16.3 % (11.5-14.5); White Blood Count 7.9 K/mm3 (4.5-10.0)
[2022-09-29 06:23] LABS: Alanine Aminotransferase 26 U/L (6-50); Albumin Level 4.7 g/dL (3.5-5.1); Alkaline Phosphatase 119 U/L (38-126); Anion Gap 10 mmol/L (8-16); Aspartate Amino Transferase 33 U/L (17-59); Bilirubin,Total 1.3 mg/dL (0.2-1.3); Blood Urea Nitrogen 16 mg/dL (9-20); Calcium 9.5 mg/dL (8.4-10.2); Carbon Dioxide 34 mmol/L (22-30); Chloride 92 mmol/L (98-107); Estimated CRCL calculation 59 ml/min; Estimated Glomerular Filt Rate > 60; Glucose 119 mg/dL (65-110); Potassium 3.1 mmol/L (3.4-5.0); Sodium 136 mmol/L (137-145)
[2022-09-29 08:15] LABS: Glucose Point of Care 172 mg/dl (65-105)
[2022-09-29] MEDS: FLUTICASONE/SALMETEROL 115-21 MCG INHALER 1 PUFF 2 PUFF INHALATION (08:17)
[2022-09-29] MEDS: OMEGA 3 POLYUNSAT FATTY ACIDS 1 GM CAP 2 GM PO (08:24)
[2022-09-29] MEDS: MIDODRINE HCL 2.5 MG TABLET PO (08:24)
[2022-09-29] MEDS: PANTOPRAZOLE 40 MG TABLET PO (08:24)
[2022-09-29] MEDS: FUROSEMIDE INJ 40 MG/4 ML VIAL IV PUSH (08:25)
[2022-09-29] MEDS: POTASSIUM CHLORIDE INJ 40 MEQ in SODIUM CHLORIDE 0.9% IV 500 ML 100 MEQ IVPB (08:26)
[2022-09-29] MEDS: ACETAMINOPHEN 325 MG TABLET 650 MG PO (08:44)
[2022-09-29] MEDS: SODIUM CHLORIDE 0.9% IV 500 ML 75 ML (08:57)
--- NOTE | 2022-09-29 10:02 | PM.CNPUL ---
Assessment and Plan Assessment and plan (1) Pleural effusion on right: Code(s): J90 - Pleural effusion, not elsewhere classified Status: Acute Assessment and Plan: On 09/28 the patient had a right thoracentesis of 1000 mL of ezra colored fluid. G stain showed many white blood cells, no organisms seen, pH was greater than 7.5, white blood cell count was 494 with a differential of neutrophils 7%, lymphocytes 78%, monocytes 15%. Post procedure chest x-ray demonstrated improved right pleural effusion with a very minimal amount of fluid. 09/29 repeat chest x-ray demonstrates very minimal right pleural effusion so there is no rapidly accumulating right pleural effusion. Remainder of chemistries, microbiology cultures and cytology are pending. From a pulmonary perspective patient is ready to be discharged on these Pulmonary medications: Wixela 250-50 at 1 puff twice a day Rescue albuterol 2 puffs Q 4 hours p.r.n. shortness of breath or wheezing Follow-up in the Pulmonary Clinic with his previously scheduled appointment on 10/06/2022 at 8:30 a.m. Discussed with Suzie Andrade, will sign off, call with questions. (2) HERACLIO (obstructive sleep apnea): Code(s): G47.33 - Obstructive sleep apnea (adult) (pediatric) Status: Acute Assessment and Plan: Split night PSG 12/05/08 - mild sleep apnea, AHI 9.4; titration to CPAP 8cmH2O. CPAP Titration 04/26/16 - recommend CPAP 9cmH2O or APAP 6-15. From clinic note 08/27/22: On APAP [id number]. Download 05/29/22-08/26/22 is showing great compliance, 98% nights used, 82% >4 hours. Avg usage 6.5hrs/night and AHI of 11.6 with avg pressure 14.2cmH2O. AHI is lower compared to previous visit. I have a download from [employer] from 07/01/2022 through 09/28/2022. The patient is on auto PAP 10-20. % of DUs days used greater than 4 hours is 77 of 90 days, 85.6%. Average usage on days used is 6 hours and 47 minutes. Patient's AHI is 12.3, clear airway apnea index 1.9, obstructive airway apnea index 5.4, hypopnea index 5, % of night in periodically breathing is 11.8. Average CPAP is 10.8. Average unintended leak is 19.7, 95th percentile CPAP is 13.8. Patient to follow-up in Pulmonary Clinic. (3) COPD (chronic obstructive pulmonary disease): Qualifiers: COPD type: unspecified COPD Qualified Code(s): J44.9 - Chronic obstructive pulmonary disease, unspecified Code(s): J44.9 - Chronic obstructive pulmonary disease, unspecified Status: Acute Assessment and Plan: Patient carries a history of COPD. PFTs on 05/26/2015 demonstrate an FEV1 of 2.06 L, 71% predicted, FEV1: FVC ratio 77%. Total lung capacity is 4.30 L, 66% predicted and he was unable to perform the DLCO. this is consistent with a mild restrictive ventilatory abnormality Patient has been maintained on with wixela 250-50 at 1 puff b.i.d. and rescue albuterol. Will continue with these. History of Present Illness History of Present Illness Consult date: 09/29/22 Chief complaint: Chest Pain,CHF,Atrial Flutter w/normal ventricular Narrative: 09/29/2022: This is a new pulmonary consult for weight loss and pleural effusions. 76-year-old man with a history of hypothyroidism, obstructive sleep apnea on auto PAP, COPD who is followed in the Pulmonary Clinic and last seen on 08/27/2022. On 08/27/2022 the patient had weight loss, fatigue and was clinically stable on with sella 250-50 at 1 puff b.i.d.. His CAT score was 17. The plan was for him to discontinue Excela and attempt a trial of trilogy samples. He was compliant with his auto PAP 10-20 and he had an Laurier score of 11. The patient was scheduled to have a thoracentesis on 09/29/2022. He tells me that the trelegy inhaler did not provide him with any benefit and he was instructed to [facility] The patient presented to the emergency due room on 09/27/2022 with chest pain that was improved when he laid down. His room air sat
--- NOTE | 2022-09-29 10:19 | P.CDI_ITS ---
CDI Query Clarified Diagnosis Clarified Diagnosis: CHF noted in the assessment and plan. BNP elevated on the 09/27/22 lab work. Chest Xray from 09/27/22 noted pulmonary edema. Patient receiving IV Lasix. Edema noted in the documentation. Please specify type and acuity of heart failure if known. * Acute * Chronic * Acute on Chronic * Unknown * Systolic * Diastolic * Combined Systolic and Diastolic * Unknown
[2022-09-29 11:47] LABS: Glucose Point of Care 135 mg/dl (65-105)
--- NOTE | 2022-09-29 14:02 | P.DS_ITS ---
DS: Admitting Diagnosis Discharge Date 09/29/22 Admitting Diagnosis right pleural effusion, a flutter DS: Discharge Diagnosis Discharge Diagnosis (1) Chest pain at rest: Code(s): R07.9 - Chest pain, unspecified Status: Acute Assessment and Plan: Patient presents to ED on 09/27/2022 with complaints of chest pain that is better with laying down, shortness of breath on exertion, and weight loss for 1- 2 months. * Patient EKG was read as atrial flutter although insert leads it looks like it sinus rhythm. * The patient is not on any anticoagulation and his aspirin has been on hold for him to have a thoracentesis. * Patient was given Lasix and nitro in the emergency room. * His last echo was on 07/02/2017 with an EF of 50%. * Echo has been ordered Revealing EF of 45-50%, abnormal septal wall motion with septal motion related to a postoperative state, global longitudinal strain is abnormal at 10%. * Troponin negative x3 * BNP 1590 * Cardiology has been consulted (2) Atrial flutter by electrocardiogram: Code(s): I48.92 - Unspecified atrial flutter Status: Acute Assessment and Plan: * Repeat EKG showing A-flutter With rate control. * The patient had been on an aspirin but is now on hold for thoracentesis. * His rate is controlled. * Cardiology has been consulted * Cardiology recommending Xarelto 20 mg nightly. (3) CHF (congestive heart failure): Code(s): I50.9 - Heart failure, unspecified Status: Acute Assessment and Plan: * Chronic systolic heart failure * Echo has been ordered Revealing EF of 45-50%, abnormal septal wall motion with septal motion related to a postoperative state, global longitudinal strain is abnormal at 10%. * Continue with IV Lasix (4) Pleural effusion on right: Code(s): J90 - Pleural effusion, not elsewhere classified Status: Acute Assessment and Plan: Last month the patient was found have a large right pleural effusion per CT scan in the patient is scheduled to have a thoracentesis this . I did ordered for tomorrow since the patient is in the hospital * Thoracentesis performed on 09/28/2022 yeilding 1000mL of fluuid * On the CT scan last month that shows a large right pleural effusion. The patient has been unintentionally losing weight. * Pleural fluid pH greater than 7.5. * Patient sees Dr. Montaño at [place]. * Pulmonology recommend follow up as an outpatient. (5) COPD (chronic obstructive pulmonary disease): Qualifiers: COPD type: unspecified COPD Qualified Code(s): J44.9 - Chronic obstructive pulmonary disease, unspecified Code(s): J44.9 - Chronic obstructive pulmonary disease, unspecified Status: Acute Assessment and Plan: Continue with albuterol inhaler p.r.n.. Continue with home inhaler (6) HERACLIO (obstructive sleep apnea): Code(s): G47.33 - Obstructive sleep apnea (adult) (pediatric) Status: Acute Assessment and Plan: Continue with CPAP/BiPAP as per home setting (7) Adult hypothyroidism: Code(s): E03.9 - Hypothyroidism, unspecified Status: Acute Assessment and Plan: Check thyroid level continue with levothyroxine (8) Type 2 diabetes mellitus: Qualifiers: Diabetes mellitus complication status: without complication Diabetes mellitus extermination supervisor insulin use: without extermination supervisor use Qualified Code(s):
--- NOTE | 2022-09-29 14:02 | PM.DS ---
DS: Admitting Diagnosis Discharge Date 09/29/22 Admitting Diagnosis right pleural effusion, a flutter DS: Discharge Diagnosis Discharge Diagnosis (1) Chest pain at rest: Code(s): R07.9 - Chest pain, unspecified Status: Acute Assessment and Plan: Patient presents to ED on 09/27/2022 with complaints of chest pain that is better with laying down, shortness of breath on exertion, and weight loss for 1-2 months. Patient EKG was read as atrial flutter although insert leads it looks like it sinus rhythm. The patient is not on any anticoagulation and his aspirin has been on hold for him to have a thoracentesis. Patient was given Lasix and nitro in the emergency room. His last echo was on 07/02/2017 with an EF of 50%. Echo has been ordered Revealing EF of 45-50%, abnormal septal wall motion with septal motion related to a postoperative state, global longitudinal strain is abnormal at 10%. Troponin negative x3 BNP 1590 Cardiology has been consulted (2) Atrial flutter by electrocardiogram: Code(s): I48.92 - Unspecified atrial flutter Status: Acute Assessment and Plan: Repeat EKG showing A-flutter With rate control. The patient had been on an aspirin but is now on hold for thoracentesis. His rate is controlled. Cardiology has been consulted Cardiology recommending Xarelto 20 mg nightly. (3) CHF (congestive heart failure): Code(s): I50.9 - Heart failure, unspecified Status: Acute Assessment and Plan: Chronic systolic heart failure Echo has been ordered Revealing EF of 45-50%, abnormal septal wall motion with septal motion related to a postoperative state, global longitudinal strain is abnormal at 10%. Continue with IV Lasix (4) Pleural effusion on right: Code(s): J90 - Pleural effusion, not elsewhere classified Status: Acute Assessment and Plan: Last month the patient was found have a large right pleural effusion per CT scan in the patient is scheduled to have a thoracentesis this . I did ordered for tomorrow since the patient is in the hospital Thoracentesis performed on 09/28/2022 yeilding 1000mL of fluuid On the CT scan last month that shows a large right pleural effusion. The patient has been unintentionally losing weight. Pleural fluid pH greater than 7.5. Patient sees Dr. Montaño at [place]. Pulmonology recommend follow up as an outpatient. (5) COPD (chronic obstructive pulmonary disease): Qualifiers: COPD type: unspecified COPD Qualified Code(s): J44.9 - Chronic obstructive pulmonary disease, unspecified Code(s): J44.9 - Chronic obstructive pulmonary disease, unspecified Status: Acute Assessment and Plan: Continue with albuterol inhaler p.r.n.. Continue with home inhaler (6) HERACLIO (obstructive sleep apnea): Code(s): G47.33 - Obstructive sleep apnea (adult) (pediatric) Status: Acute Assessment and Plan: Continue with CPAP/BiPAP as per home setting (7) Adult hypothyroidism: Code(s): E03.9 - Hypothyroidism, unspecified Status: Acute Assessment and Plan: Check thyroid level continue with levothyroxine (8) Type 2 diabetes mellitus: Qualifiers: Diabetes mellitus complication status: without complication Diabetes mellitus shelter insulin use: without terminal operations supervisor use Qualified Code(s): E11.9 - Type 2 diabetes mellitus without complications Code(s): E11.9 - Type 2 diabetes mellitus without complications Status: Acute Assessment and Plan: Accu-Cheks AC and HS with sliding scale insulin and hypoglycemic pork (9) Essential hypertension: Code(s): I10 - Essential (primary) hypertension Status: Acute Assessment and Plan: The patient is on midodrine for orthostatic blood pressure (10) Other and unspecified hyperlipidemia: Code
[2022-09-29 16:30] LABS: Potassium 3.7 mmol/L (3.4-5.0)
[2022-10-03 13:49] LABS: Glucose Pleural Fluid 126 mg/dL; LDH Pleural Fluid 91 U/L; Total Protein Pleural Fluid 3.4 g/dL
[2022-10-04 01:57] LABS: Amylase, Pleural Fluid 11 U/L
[2022-10-06 00:10] LABS: Albumin Pleural Fluid 2.5 g/dL
== END 2022-09-29 17:45 | disposition home or self-care (01) | DRG 313 ==
LOC: ANHED 17:29 → ANH2MED 19:14
PROVIDERS: Nurse Practitioner; Admitting Provider Family Medicine; Emergency Provider Emergency Medicine; PCP Internal Medicine; Visit Provider Internal Medicine Critical Care Medicine
DX: R07.9 Chest pain, unspecified (principal); J90 Pleural effusion, not elsewhere classified; I48.92 Unspecified atrial flutter; I50.22 Chronic systolic (congestive) heart failure; I11.0 Hypertensive heart disease with heart failure; G47.33 Obstructive sleep apnea (adult) (pediatric); I25.10 Atherosclerotic heart disease of native coronary artery without angina pectoris; J44.9 Chronic obstructive pulmonary disease, unspecified; E03.9 Hypothyroidism, unspecified; E11.9 Type 2 diabetes mellitus without complications; N40.0 Benign prostatic hyperplasia without lower urinary tract symptoms; E78.5 Hyperlipidemia, unspecified; Z96.653 Presence of artificial knee joint, bilateral; Z79.82 Long term (current) use of aspirin; Z87.891 Personal history of nicotine dependence; Z90.49 Acquired absence of other specified parts of digestive tract; Z98.49 Cataract extraction status, unspecified eye; Z95.1 Presence of aortocoronary bypass graft
CPT/HCPCS: 32555; 36415; 71045; 71046; 80048; 80053; 82040; 82042; 82150; 82247; 82465; 82945; 82947; 82948; 83036; 83615; 83690; 83735; 83880; 83986; 84132; 84155; 84157; 84311; 84443; 84478; 84484; 85025; 85610; 85730; 87015; 87070; 87075; 87102; 87116; 87205; 87206; 88108; 88184; 88305; 89051; 93005; 94640; 96374; 96375; 99285; A9270; C8929; G0378; J1940; J3480; J7040; Q9957

== ENCOUNTER 2022-11-11 09:42 | Outpatient (CLI) | payer MEDICARE, BC, SELFPAY ==
--- NOTE | ~2022-11-11 | XR_ITS ---
XR chest 2V 11/11/2022 10:07 Indication: Shortness of breath. History of CABG. Procedure: PA and lateral views the chest Comparison: Comparison to multiple prior studies sequentially, with oldest reviewed study dated 03/27. Findings: Left basilar airspace disease may represent atelectasis or pneumonia. Cardiomegaly. Status post median sternotomy for CABG. Small left pleural effusion. Impression: 1: Left basilar airspace disease may represent atelectasis or pneumonia. 2: Small left pleural effusion. Reviewed, dictated and finalized at location L. Impression: 1: Left basilar airspace disease may represent atelectasis or pneumonia. 2: Small left pleural effusion.
== END 2022-11-11 09:43 | disposition home or self-care (01) ==
PROVIDERS: PCP Internal Medicine; Visit Provider Specialist
DX: Z95.1 Presence of aortocoronary bypass graft (principal); M25.462 Effusion, left knee; R91.8 Other nonspecific abnormal finding of lung field
CPT/HCPCS: 71046

== ENCOUNTER 2022-11-18 08:30 | Outpatient (RCR) | payer SELFPAY ==
[2022-10-22 08:10] VITALS: BP 132/60; PULSE 76; RESP 18; O2SAT 96
== END 2022-11-18 10:36 | disposition home or self-care (01) ==
LOC: ANHCPREHAB 08:30
PROVIDERS: PCP Internal Medicine; Visit Provider Internal Medicine
DX: I50.89 Other heart failure (principal)
CPT/HCPCS: 99199

== ENCOUNTER 2022-12-01 09:03 | Outpatient (CLI) | payer MEDICARE, BC, SELFPAY ==
--- NOTE | ~2022-12-01 | XR_ITS ---
Cervical Spine: AP, open-mouth, and lateral views, with neutral, flexion, and extension positioning Clinical History: Pain Findings: The normal lordotic curve is maintained. The vertebral bodies and posterior elements appea r intact. No instability evident on flexion or extension. There is moderate degenerative disc narrowi ng at C5-C6 and C6-C7. There is facet arthropathy most notably at C4-C5, C5-C6, and C6-C7. Pre-verteb ral soft tissues are unremarkable. Impression: Moderate degenerative spondylosis of the lower cervical spine. No fracture or subluxation. No instability evident. Reviewed, dictated and finalized at location . Impression: Moderate degenerative spondylosis of the lower cervical spine. No fracture or subluxation. No instability evident.
== END 2022-12-01 09:04 | disposition home or self-care (01) ==
PROVIDERS: PCP Internal Medicine; Visit Provider Internal Medicine
DX: M47.892 Other spondylosis, cervical region (principal)
CPT/HCPCS: 72050

== ENCOUNTER 2022-12-13 09:25 | Outpatient (CLI) | payer MEDICARE, BC, SELFPAY ==
[2022-12-23 16:55] VITALS: BMI 26.8
--- NOTE | 2022-12-23 16:55 | WPDSLEEPSTUD ---
Sleep Study Date of Study: 12/13/22 Ordering Provider: CESAR Rosales Interpreting Physician: Crista Montaño MD Sleep Study Type: BiPAP Titration Height: 1.78 m Weight: 84.822 kg Body Mass Index: 26.8 Neck Circumference (inches): 19 [place]: 17 Reason for Sleep Study known obstructive sleep apnea, using APAP 10-20 cmH2O, AHI is high at 15.5, avg pressure 10 cm, 3.6% of the night in periodic breathing. Overnight oximetry shows 14 minutes below 88%. He presents for a repeat titraiton. Sleep History Aly Bacon Sr is a 77-year-old man with obstructive sleep apnea since 1998. He ely been on APAP 10-20 cm with an increase in his AHI 15.1. His overnight oximetry showed 14 minutes below 88% saturation with 3.6% of the night spent in periodic breathing. This is why he is having a repeat titration. His has chronic cervical spine pain, diabetes mellitus, hypothyroidism, COPD, orthostatic hypotension, and new atrial flutter. Recently, he has had difficulties with getting quality sleep. In September of 2022 he developed a right pleural effusion with a L of fluid removed. He has had a recent unintentional weight loss of 40 lb. He is always tired, no matter how much sleep her gets. . He rarely awakens from sleep feeling short of breath, rarely wakes up with heartburn, belching or coughing. He snores frequently if he does not use CPAP. When he snores, it is really loud. He does not have difficulty sleeping when he has a cold. He does not wake up gasping for breath at night. He does not have breathing problems at night reported to him by others. He does not sweat excessively at night or notice his heart pounding or beating irregularly at night. He always snores and it is always loud enough that others complain. He does not drive any longer. He occasionally has loss of muscle tone with strong emotion. He does not have daytime difficulties due to excessive sleepiness. He occasionally feels paralyzed on waking or falling asleep. He does not have vivid dreamlike scenes on waking or falling asleep. He does not feel afraid to go to sleep. He does not have nightmares. He does not have any dream recall. He does not have racing thoughts. He does not feel sad or depressed. He occasionally has anxiety. He does not have muscular tension. He has abnormal involuntary movements that cause parts of his body to jerk. He does not kick at night. He does not have crawling or aching feelings in his legs. He denies having leg pain at night. He does not have morning jaw pain and does not grind his teeth during sleep. He always is bothered by pain during the day but never awakened by pain during the night. He does not wake up feeling stiff in the morning, does not wake up with sore or achy muscles. He always wake up with pain in the neck and spine. He has memory problems, fatigue, takes Nexium regularly. Normal bedtime is between 7:30 p.m. and 8:00 p.m., falling asleep instantly waking once to go to the bathroom. He wakes the morning at 7:00 a.m.. His weekend schedule is the same. He takes naps in the afternoon or evening. Short naps are not refreshing. Use drowsy for 3 hours or longer after waking. He feels better in the morning compared to other times of day. Habits: quit tobacco 40 years ago. Caffeine 3-4 cups of coffee and soda daily. No alcohol. No recreational substances. [facility] Past Medical History Medical History Adult hypothyroidism BMI 26.0-26.9,adult BMI 27.0-27.9,adult BMI 28.0-28.9,adult BMI 29.0-29.9,adult Cervicalgia Chest pain COPD (chronic obstructive pulmonary disease) COVID-19 Depression Encounter to establish care Fatigue Follow up Impaired functional mobility, balance, gait, and endurance Obesity Orthostatic hypotension HERACLIO (obstructive sleep apnea) HERACLIO on CPAP Unintentional weight loss Surgical History Surgical History (Reviewed 12/23/22 @ 17:13 by Krista
== END 2022-12-14 08:05 | disposition home or self-care (01) ==
LOC: ANHCSM 09:26
PROVIDERS: PCP Internal Medicine; Visit Provider Physician Assistant
DX: G47.33 Obstructive sleep apnea (adult) (pediatric) (principal)
CPT/HCPCS: 95811

== ENCOUNTER 2023-04-26 01:32 | Day surgery (SDC) | payer MEDICARE, BC, SELFPAY ==
[2023-04-20 11:24] VITALS: BMI 25.9
[2023-04-26 07:52] VITALS: BP 121/85; PULSE 78; RESP 18; TEMP 36.2; O2SAT 99; BMI 25.9
[2023-04-26] MEDS: LACTATED RINGERS 1,000 ML 150 ML IV CONT (08:24)
[2023-04-26 08:25] LABS: Glucose Point of Care 130 mg/dl (65-105)
--- NOTE | 2023-04-26 08:33 | PM.HPGS ---
History of Present Illness History of Present Illness Consent: Risks, benefits, and alternatives have been discussed and questions answered. Patient agrees to proceed with procedure. Chief complaint: anemia,long use of anticoagulants, Narrative: Aly Bacon Sr. is a 77 year old male Presents for both colonoscopy an EGD. Patient reports a decline in appetite. He has had a 30lb weight loss over recent years. Patient has had no bleeding. He is on anticoagulation with Xarelto because of atrial fibrillation. Colonoscopy an EGD requested because of weight loss along with decline in hemoglobin and chronic anticoagulation. Review of Systems Review of Systems: Review of systems noncontributory. [facility] Past Medical History Medical History Adult hypothyroidism Blood loss anemia BMI 26.0-26.9,adult BMI 27.0-27.9,adult BMI 28.0-28.9,adult BMI 29.0-29.9,adult Cervicalgia Chest pain COPD (chronic obstructive pulmonary disease) COVID-19 Depression Encounter to establish care Fatigue Follow up Impaired functional mobility, balance, gait, and endurance Mass of right elbow Obesity Orthostatic hypotension HERACLIO (obstructive sleep apnea) HERACLIO on CPAP Pyogenic granuloma Unintentional weight loss Surgical History Surgical History H/O cataract extraction History of cardiac catheterization History of tonsillectomy History of total bilateral knee replacement (TKR) Hx of cholecystectomy Family History Family History Father Family history of heart disease in male family member before age 55 Diabetes mellitus Family history of coronary artery disease Mother Family history of heart disease in male family member before age 55 Diabetes mellitus Family history of bronchitis Family history of coronary artery disease Family history of malignant neoplasm of breast in first degree relative Sibling Patient's sister is in good health Family history of coronary artery disease Social History Social History Social History: He lives with his . He is retired from [employer] He has 3 children. His is the durable power securities attorney for healthcare full code full code Smoking packs per day: 1 Smoking cigarettes per day: 20.0 Years smoked: 15 Smoking pack-years: 15.00 Smoking status: Former smoker Tobacco type: cigarettes, pipe and cigars Second hand tobacco smoke exposure: No Smoking end date: 11/25/73 Alcohol intake: former Substance use: never Substance use type: does not use Lack of Transportation: No Lack of Food: Never True Current Housing: I Have Housing Concerned About Future Housing: No Difficulty Paying Gas/Electric Bills: No Difficulty Paying for Meds: No Currently Unemployed: No Education: Associate Degree Difficulty w/ Childcare or Family Care: No Living arrangements: with family Gender identity (if verbalized by the patient): Male Spiritual care concerns: No Meds Home Medications and Allergies Home Medications Medication Instructions Recorded Confirmed Type albuterol sulfate 90 mcg/actuation 1 inhalation inhalation Q4H PRN 06/12/19 04/26/23 History aerosol inhaler (ProAir HFA) Dyspnea calcium carbonate 600 mg calcium 600 mg PO DAILY 06/12/19 04/26/23 History (1,500 mg) tablet vibegron 75 mg tablet (Gemtesa) 75 mg PO DAILY 12/08/21 04/26/23 History ascorbic acid (vitamin C) 1,500 mg 1 tablet PO DAILY 09/24/22 04/26/23 History tablet omega-3 fatty acids-vitamin E 2 cap PO BID 09/24/22 04/26/23 History 1,000 mg capsule B12 1,000 mg PO DAILY 09/27/22 04/26/23 History Centrum Men 1 tablet PO DAILY 09/27/22 04/26/23 History Vesicare 10 mg PO HS 09/27/22 04/26/23 History vitamin
--- NOTE | 2023-04-26 08:46 | WPDANESEPPF ---
Anes - Initial Pre Proc Eval Procedure: Operation Date: 04/26/23 09:00 Proposed Procedures p Esophagogastroduodenoscopy & Screening Colonoscopy - Primitivo Pedersen MD Date/Time: 04/26/23 08:46 Surgeon: Primitivo Pedersen MD Pre Op Diagnosis: anemia,long use of anticoagulants, Patient Data Age: 77 Gender: M Height: 1.78 m Weight: 82.1 kg Last Vital Signs Temp 97.1 F L 04/26/23 07:52 Pulse 78 04/26/23 07:52 Resp 18 04/26/23 07:52 BP 121/85 04/26/23 07:52 Pulse Ox 99 04/26/23 07:52 O2 Del Method Room Air 04/26/23 07:52 Allergies Allergy/AdvReac Type Severity Reaction Status Date / Time midazolam Allergy Severe HALLUCINATI Verified 04/26/23 08:00 ONS amitriptyline Allergy Unknown unknown Verified 04/26/23 08:00 Home Medications Medication Instructions Recorded Confirmed Type albuterol sulfate 90 mcg/actuation 1 inhalation inhalation Q4H PRN 06/12/19 04/26/23 History aerosol inhaler (ProAir HFA) Dyspnea calcium carbonate 600 mg calcium 600 mg PO DAILY 06/12/19 04/26/23 History (1,500 mg) tablet vibegron 75 mg tablet (Gemtesa) 75 mg PO DAILY 12/08/21 04/26/23 History ascorbic acid (vitamin C) 1,500 mg 1 tablet PO DAILY 09/24/22 04/26/23 History tablet omega-3 fatty acids-vitamin E 2 cap PO BID 09/24/22 04/26/23 History 1,000 mg capsule B12 1,000 mg PO DAILY 09/27/22 04/26/23 History Centrum Men 1 tablet PO DAILY 09/27/22 04/26/23 History Vesicare 10 mg PO HS 09/27/22 04/26/23 History vitamin E 400 unit PO DAILY 09/27/22 04/26/23 History aspirin 81 mg tablet,delayed 81 mg PO DAILY 10/06/22 04/26/23 History release (Adult Low Dose Aspirin) esomeprazole magnesium 40 mg 40 mg PO BID 90 days #180 caps 11/25/22 04/26/23 Rx capsule,delayed release tamsulosin 0.4 mg capsule See Rx Instructions .Route 11/25/22 04/26/23 Rx .COMPLEX #90 caps rivaroxaban 20 mg tablet (Xarelto) See Rx Instructions .Route 04/07/23 04/26/23 Rx .COMPLEX #90 tabs atorvastatin 40 mg tablet 40 mg PO HS 04/20/23 04/26/23 History fluticasone fur. 100 mcg-umeclid 1 inh inhalation DAILY 04/20/23 04/26/23 History 62.5 mcg-vilant 25 mcg inhalat.powder (Trelegy Ellipta) levothyroxine 150 mcg tablet See Rx Instructions .Route 04/20/23 04/26/23 Rx (Synthroid) .COMPLEX #90 tabs liraglutide 0.6 mg/0.1 mL (18 mg/3 1.8 mg subcut DAILY 04/20/23 04/26/23 History mL) subcutaneous pen injector (Victoza 3-Uday) midodrine 2.5 mg tablet 2.5 mg PO BID 04/20/23 04/26/23 History sitagliptin phosphate 50 1 tablet PO BID 04/20/23 04/26/23 History mg-metformin 1,000 mg tablet (Janumet) Laboratory Tests 04/26/23 08:19 POC Capillary Glucose 130 H mg/dl (65-105) Patient hx anesthesia problems: none Family hx anesthesia problems: none Results Review: All pre-operative results and documents have been reviewed as part of the pre-operative evaluation. [facility] Past Medical History Medical History Adult hypothyroidism Blood loss anemia BMI 26.0-26.9,adult BMI 27.0-27.9,adult BMI 28.0-28.9,adult BMI 29.0-29.9,adult Cervicalgia Chest pain COPD (chronic obstructive pulmonary disease) COVID-19 Depression Encounter to establish care Fatigue Follow up Impaired functional mobility, balance, gait, and endurance Mass of right elbow Obesity Orthostatic hypotension HERACLIO (obstructive sleep apnea) HERACLIO on CPAP Pyogenic granuloma Unintentional weight loss Surgical History Surgical History H/O cataract extraction History of cardiac catheterization History of tonsillectomy History of total bilateral knee replacement (TKR) Hx of cholecystectomy Family History Family History Father Family history of heart disease in male family member before age 55 Diabetes mellitus Family history of anne
--- NOTE | 2023-04-26 09:20 | SUR.OPER ---
EGD stop time 909, Colonoscopy start time 918
[2023-04-26 09:38] VITALS: BP 107/74; PULSE 92; RESP 31; O2SAT 99
[2023-04-26 09:48] VITALS: BP 131/75; PULSE 91; RESP 29; O2SAT 99
[2023-04-26 09:58] VITALS: BP 135/82; PULSE 78; RESP 31; O2SAT 98
[2023-04-26 10:08] VITALS: BP 133/82; PULSE 76; RESP 32; O2SAT 97
== END 2023-04-26 10:28 | disposition home or self-care (01) ==
PROVIDERS: PCP Internal Medicine; Visit Provider Internal Medicine Gastroenterology
PROC: 0DJ08ZZ Inspection of Upper Intestinal Tract, Via Natural or Artificial Opening Endoscopic (ICD-10-PCS; CPT 43235; principal; 2023-04-26 09:00)
DX: D64.9 Anemia, unspecified (principal); D12.2 Benign neoplasm of ascending colon; K64.8 Other hemorrhoids; K57.30 Diverticulosis of large intestine without perforation or abscess without bleeding; R63.4 Abnormal weight loss; Z68.26 Body mass index [BMI] 26.0-26.9, adult; E03.9 Hypothyroidism, unspecified; G47.33 Obstructive sleep apnea (adult) (pediatric); F32.A Depression, unspecified; J44.9 Chronic obstructive pulmonary disease, unspecified; Z87.891 Personal history of nicotine dependence; Z79.51 Long term (current) use of inhaled steroids; Z79.82 Long term (current) use of aspirin; Z79.01 Long term (current) use of anticoagulants; Z79.85 Long-term (current) use of injectable non-insulin antidiabetic drugs; Z79.84 Long term (current) use of oral hypoglycemic drugs
CPT/HCPCS: 45385; 43239; 82948; 87081; 88305; J7120

== ENCOUNTER 2023-05-01 11:19 | Inpatient (IN) | payer MEDICARE, BC, SELFPAY ==
[2023-05-01] VITALS (15 sets, daily range): BP systolic 119–152; BP diastolic 54–74; PULSE 50–103; RESP 15–24; TEMP 36.3–36.6; O2SAT 94–99; BMI 25.9
--- NOTE | ~2023-05-01 | XR_ITS ---
EXAMINATION: XR chest 2V DATE: 05/01/2023 13:17 INDICATION: Shortness of breath TECHNIQUE: AP and lateral views of the chest are obtained. COMPARISON: 11/11/2022 FINDINGS: Cardiomegaly is noted. There is a mild diffuse interstitial pattern. There are small to mod erate-sized pleural effusions. There are bibasilar airspace opacities. There is no pneumothorax. Medi an sternotomy wires and mediastinal surgical clips are seen, likely from prior coronary artery bypass grafting. There is moderate thoracic spondylosis. IMPRESSION: 1. Cardiomegaly with mild pulmonary edema. 2. Pjjpm-[id number] size pleural effusions with bibasilar airspace opacities, atelectasis versus pne umonia. Reviewed, dictated and finalized at location F. PURIFICATION WORKER IMPRESSION: 1. Cardiomegaly with mild pulmonary edema. 2. [id number] size pleural effusions with bibasilar airspace opacities, atelectasis versus pneumonia.
--- NOTE | 2023-05-01 13:06 | ECG_ITS ---
Measurements Intervals [place] Rate: 88 P: AR: 0 QRS: -56 QRSD: 139 T: 91 QT: 374 QTc: 454 Interpretive Statements ATRIAL FLUTTER/TACHYCARDIA WITH VARIABLE BLOCK INTRAVENTRICULAR CONDUCTION DELAY CANNOT RULE OUT SEPTAL INFARCT, AGE INDETERMINATE BORDERLINE ST-T WAVE ABNORMALITY- HIGH LATERAL LEADS ABNORMAL ECG COMPARED TO ECG 09/28/2022 11:05:14 NO SIGNIFICANT CHANGES Electronically Signed On 05-01-2023 16:42:22 BUREAU DIRECTOR by Anjel Murray D.O.
[2023-05-01 13:58] LABS: Basophils Percent Auto 0.2 % (0.2-1.2); Eosinophils Absolute Auto 0.1 K/mm3 (0-0.3); Eosinophils Percent Auto 1.5 % (0-4.4); Hematocrit 36.8 % (42.0-52.0); Hemoglobin 11.2 g/dL (14.0-18.0); Immature Granulocyte Absolute 0.04 K/mm3 (0.00-0.031); Immature Granulocyte Percent A 0.5 % (0-0.5); Lymphocytes Absolute Auto 1.68 K/mm3 (0.9-3.2); Lymphocytes Percent Auto 19.2 % (18.3-44.2); Mean Corpuscular HGB Conc 30.4 g/dl (32-36); Mean Corpuscular Hemoglobin 26.3 pg (26-34); Mean Corpuscular Volume 86.4 fl (80-100); Mean Platelet Volume 10.4 fl (7.4-10.4); Monocytes Absolute Auto 0.9 K/mm3 (0.1-0.6); Neutrophils Percent Auto 68.6 % (45.5-73.1); Platelet Count Result 263 k/mm3 (150-375); Red Blood Count 4.26 M/mm3 (4.6-6.20); Red Cell Distribution Width 17.8 % (11.5-14.5); White Blood Count 8.8 K/mm3 (4.5-10.0)
[2023-05-01 14:09] LABS: INR 1.4; Partial Thromboplastin Time 37.6 SECONDS (22.3-36.8); Prothrombin Time 18.2 Seconds (11.1-14.7)
[2023-05-01 14:13] LABS: Alanine Aminotransferase 20 U/L (6-50); Albumin Level 4.4 g/dL (3.5-5.1); Alkaline Phosphatase 97 U/L (38-126); Anion Gap 9 mmol/L (8-16); Aspartate Amino Transferase 27 U/L (17-59); Bilirubin,Total 1.1 mg/dL (0.2-1.3); Blood Urea Nitrogen 13 mg/dL (9-20); Calcium 9.4 mg/dL (8.4-10.2); Carbon Dioxide 26 mmol/L (22-30); Chloride 99 mmol/L (98-107); Estimated CRCL calculation 76 ml/min; Estimated Glomerular Filt Rate > 60; Glucose 127 mg/dL (65-110); Potassium 4.3 mmol/L (3.4-5.0); Sodium 134 mmol/L (137-145)
[2023-05-01 14:24] LABS: NT Pro B Type Natriuretic Pept 3770 pg/mL (19.9-100); Troponin I 0.033 ng/mL (0.000-0.034)
[2023-05-01] MEDS: FUROSEMIDE INJ 40 MG/4 ML VIAL IV PUSH ×2 (15:00→21:07)
--- NOTE | 2023-05-01 15:01 | ED.GENADULT ---
HPI - General Adult General Chief complaint: Upper Respiratory Infection Stated complaint: dry cough x1 week, edema bilat, sob Time Seen by Provider: 05/01/23 13:52 Source: patient, RN notes reviewed and old records reviewed Mode of arrival: ambulatory Limitations: no limitations History of Present Illness HPI narrative: This is a 77 year old male with history of CABG, CHF, atrial fibrillation who presents for evaluation of cough and shortness of breath. Patient reports dry cough for 1 week and bilateral leg swelling. He is also having shortness of breath with exertion with intermittent chest tightness. He is unsure of weight gain. He reports he is having to sleep in his recliner due to orthopnea. He denies fever or chills. His reports patient has history of CHF, and she also reports patient was in bigem[place] last night. Roll Coverer is Dr. Shaw. Related Data Home Medications Medication Instructions Recorded Confirmed calcium carbonate 600 mg calcium 600 mg PO DAILY 06/12/19 05/01/23 (1,500 mg) tablet vibegron 75 mg tablet (Gemtesa) 75 mg PO DAILY 12/08/21 05/01/23 ascorbic acid (vitamin C) 1,500 mg 1 tablet PO DAILY 09/24/22 05/01/23 tablet omega-3 fatty acids-vitamin E 2 cap PO BID 09/24/22 05/01/23 1,000 mg capsule Vesicare 10 mg PO HS 09/27/22 05/01/23 vitamin E 400 unit PO DAILY 09/27/22 05/01/23 aspirin 81 mg tablet,delayed 81 mg PO DAILY 10/06/22 05/01/23 release (Adult Low Dose Aspirin) atorvastatin 40 mg tablet 40 mg PO HS 04/20/23 05/01/23 fluticasone fur. 100 mcg-umeclid 1 inh inhalation DAILY 04/20/23 05/01/23 62.5 mcg-vilant 25 mcg inhalat.powder (Trelegy Ellipta) liraglutide 0.6 mg/0.1 mL (18 mg/3 1.8 mg subcut DAILY 04/20/23 05/01/23 mL) subcutaneous pen injector (Victoza 3-Uday) midodrine 2.5 mg tablet 2.5 mg PO BID 04/20/23 05/01/23 sitagliptin phosphate 50 1 tablet PO BID 04/20/23 05/01/23 mg-metformin 1,000 mg tablet (Janumet) Centrum Silver Men 1 tablet PO DAILY 05/01/23 05/01/23 cyanocobalamin (vitamin B-12) 1,000 mcg PO DAILY 05/01/23 05/01/23 1,000 mcg tablet fluticasone fur. 100 mcg-umeclid 1 inh inhalation DAILY 05/01/23 05/01/23 62.5 mcg-vilant 25 mcg inhalat.powder (Trelegy Ellipta) ibuprofen 800 mg tablet (IBU) 800 mg PO Q6H PRN arthritic pain 05/01/23 05/01/23 levothyroxine 150 mcg tablet 150 mcg PO HS 05/01/23 05/01/23 (Synthroid) rivaroxaban 20 mg tablet (Xarelto) 20 mg PO 1630 05/01/23 05/01/23 tamsulosin 0.4 mg capsule 0.4 mg PO HS 05/01/23 05/01/23 Allergies Allergy/AdvReac Type Severity Reaction Status Date / Time midazolam Allergy Severe HALLUCINATI Verified 05/01/23 20:38 ONS amitriptyline Allergy Unknown unknown Verified 05/01/23 20:38 Review of Systems Constitutional: Constitutional: Denies weakness Cardiovascular: Cardiovascular: Denies syncope, Denies rapid heart rate, Reports irregular heart rhythm, Reports leg edema and Reports dyspnea Respiratory: Respiratory: Reports chest congestion, Reports cough, Denies hemoptysis, Denies excessive phlegm production and Reports dyspnea Gastrointestinal: Gastrointestinal: Denies abdominal pain, Denies hematochezia, Denies diarrhea and Denies vomiting Genitourinary: Genitourinary: Denies hematuria, Denies dysuria, Denies penile discharge and Denies testicular pain Musculoskeletal: Musculoskeletal: Denies joint swelling, Denies loss of height and Denies muscle weakness Neurologic: Denies syncope, Denies focal weakness and Denies weakness PMFSH Past Medical History Medical History Adult hypothyroidism Blood loss anemia BMI 26.0-26.9,adult BMI 27.0-27.9,adult BMI 28.0-28.9,adult BMI 29.0-29.9,adult Cervicalgia Chest pain COPD (chronic obstructive pulmonary disease) COVID-19 Depression Encounter to establish care Fatigue Follow up Impaired functional mobility, balance, gait, and endurance Mass of right elbow Obesity Orth
[2023-05-01 15:20] LABS: Influenza A QL RT-PCR Negative (Negative); Influenza B QL RT-PCR Negative (Negative); SARS-CoV-2 RNA PCR Negative (Negative)
--- NOTE | 2023-05-01 15:49 | PM.IMHP ---
H&P: HPI History of Present Illness Date/Time: 05/01/23 17:30 Chief Complaint: Shortness of breath. Narrative: This is a very pleasant 77-year-old male with congestive heart failure (echo in September 2022 showing mildly reduced LV systolic function with an estimated EF of 45 to 50% and reduced right ventricular systolic function), coronary artery disease status post bypass, paroxysmal atrial fibrillation on anticoagulation, chronic obstructive pulmonary disease, type 2 diabetes mellitus, benign prostatic hyperplasia, gastroesophageal reflux disease, and hypothyroidism who presented to the emergency department via private vehicle for evaluation of shortness of breath. The patient provides the following history. Over the past 1 week or so he has developed a dry cough, increasing lower extremity edema, and dyspnea on exertion. He is otherwise feeling okay and was initially hesitant to come in for evaluation but his eventually talk him into it. He denies fever, chills, sweats, sinus congestion, sore throat, lightheadedness, dizziness, chest pain, pleuritic pain, palpitations, sensations of racing heart, nausea, vomiting, and calf pain. In the ED: He was afebrile on arrival with stable blood pressures. SpO2 has been in the mid 90s on room air. Labs were significant for a stable/chronic anemia, sodium 134, 0.033, proBNP 3770. Chest x-ray showed cardiomegaly with mild pulmonary edema and small to moderate-sized pleural effusions with bibasilar airspace opacities. EKG showed atrial flutter/tachycardia with variable block and some old findings not significantly changed from prior tracings. He received 40 mg IV furosemide x1 and he is being admitted for further diuresis. Review of Systems Review of Systems: 12 systems were reviewed. He has lost 40 lb in the last 8 months unintentionally. He reports that he just does not have a good appetite. Upper and lower endoscopies per Dr. Pedersen last week were pretty unremarkable. One small benign colon polyp was removed. He has no personal history of malignancy. Except as documented, all other systems were reviewed and are negative. [facility] Past Medical History Medical History (Updated 05/01/23 @ 22:47 by Virginia Estrada PA-C) Benign prostatic hyperplasia Chronic anemia Chronic anticoagulation Chronic obstructive pulmonary disease Depression Hypothyroidism Moderate mitral valve regurgitation Obesity Obstructive sleep apnea treated with BiPAP Orthostatic hypotension Paroxysmal atrial fibrillation Short-term memory loss Surgical History Surgical History (Updated 05/01/23 @ 22:37 by Virginia Estrada PA-C) History of bilateral knee replacement History of cardiac catheterization History of cataract extraction History of cholecystectomy History of colonoscopy with polypectomy History of four vessel coronary artery bypass graft (1998) History of tonsillectomy Family History Family History Father Family history of heart disease in male family member before age 55 Diabetes mellitus Family history of coronary artery disease Mother Family history of heart disease in male family member before age 55 Diabetes mellitus Family history of bronchitis Family history of coronary artery disease Family history of malignant neoplasm of breast in first degree relative Sibling Patient's sister is in good health Family history of coronary artery disease Social History Social History (Updated 05/01/23 @ 22:38 by Virginia Estrada PA-C) Social History: Surrogate medical decision maker: Zarina Bacon, spouse. Code status: Do not resuscitate. Smoking packs per day: 1 Smoking cigarettes per day: 20.0 Years smoked: 25 Smoking pack-years: 25.00 Smoking status: Former smoker Tobacco type: cigarettes, pipe and cigars Second hand tobacco smoke exposure: No Smoking end date: 11/25/73 Alcohol intake: former Substance
--- NOTE | 2023-05-01 18:48 | ADMGEN ---
This patient, Aly Bacon Sr., was admitted to IMU Room 206-02. Patient/family oriented to hospital policies and general routines including ID bracelet, bed and alarms, visiting hours, pain management, procedures, bathroom and other care routines, personal items, smoking policy, room service/diet, and visiting hours. Information on how to activate the Rapid Response Team has been discussed. Patient/Family are encouraged to report perceived risks to care and to ask questions if they do not understand what they are told or what they should do.
[2023-05-02] VITALS (21 sets, daily range): BP systolic 108–139; BP diastolic 59–82; PULSE 60–102; RESP 16–20; TEMP 36.2–37.1; O2SAT 95–100; BMI 25.4
[2023-05-02] MEDS: LEVOTHYROXINE SODIUM 150 MCG TABLET PO ×2 (00:53→20:55)
[2023-05-02] MEDS: OMEGA 3 POLYUNSAT FATTY ACIDS 1 GM CAP 2 GM PO ×3 (00:53→17:49)
[2023-05-02] MEDS: ATORVASTATIN 40 MG TABLET PO ×2 (00:53→20:55)
[2023-05-02] MEDS: PANTOPRAZOLE 40 MG TABLET PO ×3 (00:54→17:49)
[2023-05-02] MEDS: TAMSULOSIN HCL 0.4 MG CAPSULE PO ×2 (00:54→20:55)
[2023-05-02] MEDS: SOLIFENACIN 5 MG TABLET 10 MG PO ×2 (00:55→20:55)
[2023-05-02] MEDS: RIVAROXABAN 20 MG TABLET PO ×2 (00:56→17:53)
[2023-05-02 05:26] LABS: Hematocrit 34.6 % (42.0-52.0); Hemoglobin 10.9 g/dL (14.0-18.0); Mean Corpuscular HGB Conc 31.5 g/dl (32-36); Mean Corpuscular Hemoglobin 26.9 pg (26-34); Mean Corpuscular Volume 85.4 fl (80-100); Mean Platelet Volume 10.3 fl (7.4-10.4); Platelet Count Result 271 k/mm3 (150-375); Red Blood Count 4.05 M/mm3 (4.6-6.20); Red Cell Distribution Width 17.7 % (11.5-14.5); White Blood Count 7.2 K/mm3 (4.5-10.0)
[2023-05-02 05:42] LABS: Anion Gap 9 mmol/L (8-16); Blood Urea Nitrogen 15 mg/dL (9-20); Calcium 9.3 mg/dL (8.4-10.2); Carbon Dioxide 30 mmol/L (22-30); Chloride 93 mmol/L (98-107); Estimated CRCL calculation 76 ml/min; Estimated Glomerular Filt Rate > 60; Glucose 112 mg/dL (65-110); Magnesium 1.7 mg/dL (1.6-2.3); Potassium 3.5 mmol/L (3.4-5.0); Sodium 132 mmol/L (137-145)
--- NOTE | 2023-05-02 08:12 | PM.IMPN ---
Progress Note: A&P Assessment and Plan (1) Acute on chronic systolic (congestive) heart failure: Code(s): I50.23 - Acute on chronic systolic (congestive) heart failure Status: Acute Assessment and Plan: Patient presents with increasing shortness of breath and lower extremity edema for the past week as detailed above. Preliminary workup is consistent with acute on chronic systolic CHF exacerbation. Precipitating etiology unclear. Diuresis with furosemide 40 mg IV b.i.d. Close monitoring of volume status, renal function, and electrolytes. [facility] cardiology consulted per patient request. (2) Atrial fibrillation and flutter: Code(s): I48.91 - Unspecified atrial fibrillation; I48.92 - Unspecified atrial flutter Status: Acute Assessment and Plan: He is rate controlled and is asymptomatic. Continue rivaroxaban for stroke prophylaxis. (3) Chronic anemia: Code(s): D64.9 - Anemia, unspecified Status: Acute Assessment and Plan: Hemoglobin and hematocrit are stable on review of previous labs. (4) Chronic obstructive pulmonary disease: Code(s): J44.9 - Chronic obstructive pulmonary disease, unspecified Status: Acute Assessment and Plan: No evidence to suggest acute exacerbation. Continue maintenance inhalers. (5) Hypothyroidism: Code(s): E03.9 - Hypothyroidism, unspecified Status: Acute Assessment and Plan: Continue levothyroxine and check TSH and free T4. (6) Obstructive sleep apnea treated with BiPAP: Code(s): G47.33 - Obstructive sleep apnea (adult) (pediatric) Status: Acute Assessment and Plan: BiPAP will be provided for the patient to use while hospitalized. (7) Moderate mitral valve regurgitation: Code(s): I34.0 - Nonrheumatic mitral (valve) insufficiency Status: Acute Assessment and Plan: Noted on echo in September 2022. (8) Orthostatic hypotension: Code(s): I95.1 - Orthostatic hypotension Status: Acute Assessment and Plan: Patient has been on midodrine 2.5 mg b.i.d. for quite some time. Continue midodrine for now. Monitor orthostatic vital signs. Plan DVT prophylaxis with xarelto GI prophylaxis not indicated Code status DNR Subjective Date/time seen: 05/02/23 08:12 Interval history: 77-year-old male with congestive heart failure, coronary artery disease status post bypass, paroxysmal atrial fibrillation on anticoagulation, chronic obstructive pulmonary disease, type 2 diabetes mellitus who presented with shortness of breath and is being treated for heart failure exacerbation. No overnight events noted. No nausea, vomiting or diarrhea. No fevers or chills. Review of Systems Review of Systems: 12 point review of systems was assessed and was negative except as noted in the HPI Exam Narrative: General: No acute distress, alert and oriented per baseline HEENT: Atraumatic, normocephalic, mucous membranes moist CV: Regular rate and rhythm, S1, S2 Lungs: Clear to auscultation bilaterally, no rales or crackles noted, no wheezes, good air entry Abdomen: Soft, nontender, nondistended Extremities: Normal to inspection Skin: No rashes noted, no lesions or wounds seen Psych: Euthymic, normal affect Objective Data Vital Signs Vital Signs: Vital Signs - 24 hr 05/01/23 11:26 05/01/23 13:44 05/01/23 14:46 Temperature 97.3 F L Pulse Rate 67 74 75 Respiratory Rate 20 20 20 Blood Pressure 119/63 134/69 123/66 Pulse Oximetry 94 99 96 Oxygen Delivery 05/01/23 15:30 05/01/23 16:14 05/01/23 16:46 Temperature Pulse Rate 76 74 97 Respiratory Rate 20 20 20 Blood Pressure 120/68 124/66 123/70 Pulse Oximetry 96 96 97 Oxygen Delivery 05/01/23 17:01 05/01/23 17:46 05/01/23 18:59 Temperature 97.8 F Pulse Rate 101 H 78 50 L Respiratory Rate 15 20 24 H Blood Pressure 144/58 H 135/74 147/66 H Pulse Ox
[2023-05-02] MEDS: FLUTICASONE/UMECLIDIN/VILANTER 100-62.5-25 MCG ELLIPTA 1 PUFF INHALATION (08:15)
[2023-05-02] MEDS: ACETAMINOPHEN 325 MG TABLET 650 MG PO ×2 (08:59→17:53)
[2023-05-02] MEDS: FUROSEMIDE INJ 40 MG/4 ML VIAL IV PUSH (09:00)
[2023-05-02] MEDS: CALCIUM CARBONATE (OSCAL) 500 MG TABLET PO (09:00)
[2023-05-02] MEDS: ASCORBIC ACID 500 MG TABLET 1500 MG PO (09:00)
[2023-05-02] MEDS: VITAMIN E 400 UNIT CAPSULE PO (09:01)
[2023-05-02] MEDS: CYANOCOBALAMIN 1,000 MCG TABLET 1000 MCG PO (09:01)
[2023-05-02] MEDS: ASPIRIN 81 MG ENTERIC TABLET PO (09:01)
[2023-05-02] MEDS: MULTIVITAMINS /C LUTEIN (CENTRUM SILVER) TABLET *BKC 1 TAB PO (09:01)
--- NOTE | 2023-05-02 14:48 | PM.CNCAR ---
Assessment and Plan Assessment and plan (1) Atrial fibrillation and flutter: Code(s): I48.91 - Unspecified atrial fibrillation; I48.92 - Unspecified atrial flutter Status: Acute (2) CHF (congestive heart failure): Qualifiers: Heart failure chronicity: acute Code(s): I50.9 - Heart failure, unspecified Status: Acute (3) CAD (coronary artery disease): Code(s): I25.10 - Atherosclerotic heart disease of [place] coronary artery without angina pectoris Status: Acute Plan This is a 77-year-old man with chronic coronary artery disease status post surgical revascularization in 1998 he does have mild LV systolic dysfunction and atrial fibrillation as the substrate for his CHF. At baseline he also has been taking midodrine and ibuprofen although he says he uses a lot less of ibuprofen that he has in the past. At this time I would recommend stopping those 2 medications since they will exacerbate heart failure I will start a low dose of Entresto, metoprolol succinate and spironolactone for optimal suppression of his renal angiotensin access. I am going to stop IV furosemide for now since he is euvolemic or at least much better than he was on admission a couple of days ago. Will follow him with you during this hospital stay and arrange for appropriate follow-up after discharge. I do not anticipate any aggressive procedures evaluating his coronary disease as he has selected DNR status. I did discuss this for a while with he and his at the end of this encounter today. Sandeep Shaw MD [facility] History of Present Illness History of Present Illness Consult date/time: 05/02/23 14:48 Reason For Visit: CHF, Chest Pain Narrative: This is a 77-year-old man I am seeing at the request of the hospitalist to assist with the evaluation and management of congestive heart failure. This patient is well-known to me with a history of ischemic heart disease and chronic atrial fibrillation. He was known to my practice back in the when he was found to have multivessel coronary disease with high-grade left main stenosis. He was referred for surgical revascularization and received an OMID graft to the LAD, a radial artery graft sequentially to 2 marginal branches of his circumflex and a saphenous vein graft to the distal right coronary artery. Overall he has done very well since then. He was found to have atrial fibrillation a couple of years ago and was hospitalized here with some weakness and shortness of breath. His AFib was of unknown duration. Holter monitor demonstrated persistent rate controlled AF and he was at that time anticoagulated with Xarelto. An attempt at restoring sinus rhythm was discussed but rate control and anticoagulation were chosen. He most recently had an echocardiogram earlier this year that shows his ejection fraction to be somewhat reduced at 40-45%. He otherwise is feeling relatively well he states that for the last couple of weeks or so before he came into the hospital this past weekend he was noticing worsening shortness of breath and lower extremity edema. He was treated with intravenous furosemide following admission with resolution of his edema his breathing is better. His chest x-ray did show some pulmonary congestion which is increased in comparison to previous x-ray in October of this year. His medical regimen at home consists of ibuprofen as well as midodrine. His PCP started him on midodrine recently because of concerns regarding orthostatic hypotension. He has not had severe difficulty with orthostasis and has not had any syncopal events. He was not on any medication at all for heart failure at baseline. His renal function is normal and he is modestly anemic. Review of Systems Constitutional: Constitutional: Reports fatigue Eyes: Eyes: Reports no additional eye complaints ENT: Reports system reviewed and no additional complaints, except as documented Cardiovascular:
[2023-05-02] MEDS: SACUBITRIL/VALSARTAN 24-26 MG TABLET 1 TAB PO (20:55)
[2023-05-03] VITALS (9 sets, daily range): BP systolic 112–120; BP diastolic 61–66; PULSE 73–97; RESP 18; TEMP 36–36.4; O2SAT 96–98
--- NOTE | 2023-05-03 04:52 | ECG_ITS ---
Measurements Intervals [place] Rate: 73 P: [place]: 0 QRS: -55 QRSD: 131 T: 122 QT: 410 QTc: 455 Interpretive Statements ATRIAL FLUTTER/TACHYCARDIA INTRAVENTRICULAR CONDUCTION DELAY POOR R WAVE PROGRESSION, ANTERIOR LEADS BORDERLINE ST-T WAVE ABNORMALITY- HIGH LATERAL LEADS BASELINE ARTIFACT- I, AVR ABNORMAL ECG COMPARED TO ECG 05/01/2023 13:12:36 NO SIGNIFICANT CHANGES Electronically Signed On 05-03-2023 6:41:07 PLC CONTROLS ENGINEER by Anjel Murray D.O.
[2023-05-03 05:05] LABS: Basophils Percent Auto 0.4 % (0.2-1.2); Eosinophils Absolute Auto 0.3 K/mm3 (0-0.3); Eosinophils Percent Auto 2.5 % (0-4.4); Hematocrit 36.6 % (42.0-52.0); Hemoglobin 11.7 g/dL (14.0-18.0); Immature Granulocyte Absolute 0.03 K/mm3 (0.00-0.031); Immature Granulocyte Percent A 0.3 % (0-0.5); Lymphocytes Absolute Auto 1.31 K/mm3 (0.9-3.2); Lymphocytes Percent Auto 13.2 % (18.3-44.2); Mean Corpuscular Hemoglobin 26.8 pg (26-34); Mean Corpuscular Volume 83.9 fl (80-100); Mean Platelet Volume 9.5 fl (7.4-10.4); Monocytes Absolute Auto 0.8 K/mm3 (0.1-0.6); Neutrophils Absolute Auto 7.5 K/mm3 (1.3-6.7); Neutrophils Percent Auto 75.6 % (45.5-73.1); Platelet Count Result 283 k/mm3 (150-375); Red Blood Count 4.36 M/mm3 (4.6-6.20); Red Cell Distribution Width 17.2 % (11.5-14.5); White Blood Count 9.9 K/mm3 (4.5-10.0)
[2023-05-03] MEDS: METOPROLOL SUCCINATE EXT REL 25 MG TABCR PO (05:22)
[2023-05-03 05:32] LABS: Alanine Aminotransferase 17 U/L (6-50); Albumin Level 3.8 g/dL (3.5-5.1); Alkaline Phosphatase 98 U/L (38-126); Anion Gap 6 mmol/L (8-16); Aspartate Amino Transferase 28 U/L (17-59); Bilirubin,Total 0.8 mg/dL (0.2-1.3); Blood Urea Nitrogen 20 mg/dL (9-20); Calcium 9.3 mg/dL (8.4-10.2); Carbon Dioxide 34 mmol/L (22-30); Chloride 91 mmol/L (98-107); Estimated CRCL calculation 60 ml/min; Estimated Glomerular Filt Rate > 60; Glucose 137 mg/dL (65-110); Magnesium 1.8 mg/dL (1.6-2.3); Potassium 3.6 mmol/L (3.4-5.0); Sodium 131 mmol/L (137-145)
[2023-05-03] MEDS: FLUTICASONE/UMECLIDIN/VILANTER 100-62.5-25 MCG ELLIPTA 1 PUFF INHALATION (08:17)
[2023-05-03] MEDS: PANTOPRAZOLE 40 MG TABLET PO (08:43)
[2023-05-03] MEDS: ASCORBIC ACID 500 MG TABLET 1500 MG PO (08:43)
[2023-05-03] MEDS: ASPIRIN 81 MG ENTERIC TABLET PO (08:43)
[2023-05-03] MEDS: VITAMIN E 400 UNIT CAPSULE PO (08:43)
[2023-05-03] MEDS: MULTIVITAMINS /C LUTEIN (CENTRUM SILVER) TABLET *BKC 1 TAB PO (08:43)
[2023-05-03] MEDS: CYANOCOBALAMIN 1,000 MCG TABLET 1000 MCG PO (08:44)
[2023-05-03] MEDS: OMEGA 3 POLYUNSAT FATTY ACIDS 1 GM CAP 2 GM PO (08:44)
[2023-05-03] MEDS: CALCIUM CARBONATE (OSCAL) 500 MG TABLET PO (08:44)
[2023-05-03] MEDS: SACUBITRIL/VALSARTAN 24-26 MG TABLET 1 TAB PO (08:44)
[2023-05-03] MEDS: SPIRONOLACTONE 25 MG TABLET PO (08:44)
--- NOTE | 2023-05-03 09:22 | PM.DS ---
DS: Admitting Diagnosis Discharge Date 05/03/23 Admitting Diagnosis Shortness of breath DS: Discharge Diagnosis Discharge Diagnosis (1) Acute on chronic systolic (congestive) heart failure: Code(s): I50.23 - Acute on chronic systolic (congestive) heart failure Status: Acute Assessment and Plan: Patient presents with increasing shortness of breath and lower extremity edema for the past week as detailed above. Preliminary workup is consistent with acute on chronic systolic CHF exacerbation. Precipitating etiology unclear. Diuresis with furosemide 40 mg IV b.i.d. Close monitoring of volume status, renal function, and electrolytes. [facility] cardiology consulted per patient request. (2) Atrial fibrillation and flutter: Code(s): I48.91 - Unspecified atrial fibrillation; I48.92 - Unspecified atrial flutter Status: Acute Assessment and Plan: He is rate controlled and is asymptomatic. Continue rivaroxaban for stroke prophylaxis. (3) Chronic anemia: Code(s): D64.9 - Anemia, unspecified Status: Acute Assessment and Plan: Hemoglobin and hematocrit are stable on review of previous labs. (4) Chronic obstructive pulmonary disease: Code(s): J44.9 - Chronic obstructive pulmonary disease, unspecified Status: Acute Assessment and Plan: No evidence to suggest acute exacerbation. Continue maintenance inhalers. (5) Hypothyroidism: Code(s): E03.9 - Hypothyroidism, unspecified Status: Acute Assessment and Plan: Continue levothyroxine and check TSH and free T4. (6) Obstructive sleep apnea treated with BiPAP: Code(s): G47.33 - Obstructive sleep apnea (adult) (pediatric) Status: Acute Assessment and Plan: BiPAP will be provided for the patient to use while hospitalized. (7) Moderate mitral valve regurgitation: Code(s): I34.0 - Nonrheumatic mitral (valve) insufficiency Status: Acute Assessment and Plan: Noted on echo in September 2022. (8) Orthostatic hypotension: Code(s): I95.1 - Orthostatic hypotension Status: Acute Assessment and Plan: Patient has been on midodrine 2.5 mg b.i.d. for quite some time. Continue midodrine for now. Monitor orthostatic vital signs. Plan DVT prophylaxis with xarelto GI prophylaxis not indicated Code status DNR DS: Summary Hospital Course Hospital Course: 77-year-old male with congestive heart failure, coronary artery disease status post bypass, paroxysmal atrial fibrillation on anticoagulation, chronic obstructive pulmonary disease, type 2 diabetes mellitus who presented with shortness of breath and is being treated for heart failure exacerbation. At baseline he also has been taking midodrine and ibuprofen although he says he uses a lot less of ibuprofen that he has in the past.? At this time I would recommend stopping those 2 medications since they will exacerbate heart failure. Start a low dose of Entresto, metoprolol succinate and spironolactone for optimal suppression of his renal angiotensin access.? Stop IV furosemide for now since he is euvolemic or at least much better than he was on admission a couple of days ago.? No aggressive procedures evaluating his coronary disease as he has selected DNR status.? All symptoms improved, patient was discharged in stable condition with close outpatient follow-up. Please see above and med rec for details. Time Spent with Patient Time attestation: Total time spent providing and/or coordinating discharge services: Exam Narrative: General: No acute distress, alert and oriented per baseline HEENT: Atraumatic, normocephalic, mucous membranes moist CV: Regular rate and rhythm, S1, S2 Lungs: Clear to auscultation bilaterally, no rales or crackles noted, no wheezes, good air entry Abdomen: Soft, nontender, nondistended Extremities: Normal to inspection Skin: No rashes noted, no lesions
--- NOTE | 2023-05-03 11:41 | P.CDI_ITS ---
CDI Query Clarification Request BMI 25.4 Nutritional Diagnostic Statement Moderate protein calorie malnutrition related to inadequate energy intake as evidenced by patient report , reduced intake greater than 1 month, and noted significant weight loss -15% x 6 months. Please refer to the comprehensive nutrition assessment for further information. Please clarify severity of protein calorie malnutrition if known: * Mild * Moderate * Severe * Other/Unspecified <Lucia Yun RN - Last Filed: 05/03/23 11:46> Clarified Diagnosis Clarified Diagnosis: mild malnutrition <Kimberlee Walter DO - Last Filed: 05/03/23 16:40>
== END 2023-05-03 10:52 | disposition home or self-care (01) | DRG 292 ==
LOC: ANHED 14:15 → ANHIMU 18:46
PROVIDERS: Physician Assistant; Student in an Organized Health Care Education/Training Program; Admitting Provider Internal Medicine; Emergency Provider General Practice; PCP Internal Medicine; Visit Provider Student in an Organized Health Care Education/Training Program
DX: I50.23 Acute on chronic systolic (congestive) heart failure (principal); E44.1 Mild protein-calorie malnutrition; I48.92 Unspecified atrial flutter; D64.9 Anemia, unspecified; I48.0 Paroxysmal atrial fibrillation; J44.9 Chronic obstructive pulmonary disease, unspecified; E03.9 Hypothyroidism, unspecified; G47.33 Obstructive sleep apnea (adult) (pediatric); I34.0 Nonrheumatic mitral (valve) insufficiency; E11.9 Type 2 diabetes mellitus without complications; I95.1 Orthostatic hypotension; Z20.822 Contact with and (suspected) exposure to COVID-19; I25.10 Atherosclerotic heart disease of native coronary artery without angina pectoris; Z66 Do not resuscitate; Z96.653 Presence of artificial knee joint, bilateral; Z95.1 Presence of aortocoronary bypass graft; Z79.01 Long term (current) use of anticoagulants; Z68.25 Body mass index [BMI] 25.0-25.9, adult; Z86.16 Personal history of COVID-19; Z90.49 Acquired absence of other specified parts of digestive tract; Z87.891 Personal history of nicotine dependence
CPT/HCPCS: 36415; 71046; 80048; 80053; 83735; 83880; 84443; 84484; 85025; 85027; 85610; 85730; 87636; 93005; 94640; 96374; 96376; 99285; A9270; G0378; J1940

== ENCOUNTER 2023-05-17 07:00 | Outpatient (NON) | payer MEDICARE, BC, SELFPAY | END 2023-05-17 07:01 | disposition home or self-care (01) | LOC: ANHLAB 05-18 12:31 | PROVIDERS: PCP Internal Medicine; Visit Provider Nurse Practitioner | DX: C44.622 Squamous cell carcinoma of skin of right upper limb, including shoulder (principal) | CPT/HCPCS: 88305 ==

== ENCOUNTER 2023-06-28 12:34 | Outpatient (NON) | payer MEDICARE, BC, SELFPAY | END 2023-06-28 12:35 | disposition home or self-care (01) | PROVIDERS: PCP Internal Medicine; Visit Provider Nurse Practitioner | DX: C44.92 Squamous cell carcinoma of skin, unspecified (principal) | CPT/HCPCS: 88305 ==

== ENCOUNTER 2023-08-10 09:38 | Outpatient (CLI) | payer MEDICARE, BC, SELFPAY ==
--- NOTE | ~2023-08-10 | XR_ITS ---
Clinical Indication: Breathing abnormality PA and lateral views of the chest: Comparison: 05/01/2023 Findings: The lungs are clear, without evidence of focal consolidation or pleural effusion. Cardiome diastinal silhouette is within normal limits. Bones and soft tissues are unremarkable. Impression: Normal chest. Reviewed, dictated and finalized at [facility]. ANICAL TEST ENGINEER Impression: Normal chest.
== END 2023-08-10 09:39 | disposition home or self-care (01) ==
LOC: ANHIMG 09:40
PROVIDERS: PCP Internal Medicine; Visit Provider Nurse Practitioner Family
DX: R06.89 Other abnormalities of breathing (principal); I50.9 Heart failure, unspecified
CPT/HCPCS: 71046

== ENCOUNTER 2024-09-21 19:51 | Emergency (ER) | payer MEDICARE, BC, SELFPAY ==
--- NOTE | ~2024-09-21 | XR_ITS ---
XR chest 2V Ordering provider: Thai Julian History: 78 years Male with . CP SOB . Comparison: August 10, 2023 FINDINGS: MEDIASTINUM: The cardiac silhouette is not enlarged. Postoperative changes in the mediastinum. LUNGS: No pneumothorax. Opacification in the left lung base is seen suggestive of atelectasis versus pneumonia. Pleural thickening in the left and right side with blunting of the costophrenic angles with no change from previous examination. OTHER: No free air under the diaphragm. Degenerative changes of the spine. IMPRESSION: Left basilar pneumonia. Reviewed, dictated and finalized at location A. IMPRESSION: Left basilar pneumonia.
[2024-09-21 19:52] VITALS: BP 128/53; PULSE 84; RESP 18; TEMP 36.2; O2SAT 99
--- NOTE | 2024-09-21 19:52 | ECG_ITS ---
Test Date: 2024-09-21 19:58:00 Measurements Intervals [place] Rate: 71 P: 0 MS: 0 QRS: -63 QRSD: 137 T: 81 QT: 356 QTc: 389 Interpretive Statements ATRIAL FLUTTER/TACHYCARDIA INTRAVENTRICULAR CONDUCTION DELAY [130+ ms QRS DURATION] POSSIBLE ANTERIOR MYOCARDIAL INFARCTION , PROBABLY OLD [30 ms Q WAVE IN V3/V4, OR R < 0.2 mV IN V4] ABNORMAL ECG Electronically Signed On 09-22-2024 10:00:17 CDT by Mac Gutierrez M.D.
--- OUTSIDE RECORDS SUMMARY | 2024-09-21 19:53 | XMS_ITS | Continuity of Care Document ---
Author Organization [facility] Address [address] [place] [address] Phone Care Team Providers Care Materials Management Clerk Name Role Phone Peters OD, Primitivo Unavailable Unavailable Advance Directives Directive Yes / No Effective Date File Name No Information Encounters Encounter Description Practice Location Reason(s) For Visit Diagnoses Date Provider Providers Copied on Encounter [facility], [address], [place], [place], [id number], [place] tel:[phone] SEC [facility] [place] No Information Pernell-0 2-200 4 Peters OD Primitivo. [address] , [address], [place], [address], [place]. tel:[phone] Family History Family Member Type Diagnosis Age At Onset No Information Payers Payer name Insurance type Covered constitution party ID Authoriza tion(s) No Information Social History Type Description Quantity Date Captured Comments Sex Male Smoking Status No Information Chief Complaint And Reason For Visit No Information Reason For Referral Reason For Referral No Information History Of Present Illness Encounter Date Complaint History Of Prese nt Illness No Information Functional Status Date Functional Assessmen t No Information Instructions Date Instruction Additional Infor mation No Information Assessments Type Assessment Date No Information Patient Care Teams Name Effective Dates (start - stop) Status Members No Information
--- OUTSIDE RECORDS SUMMARY | 2024-09-21 19:53 | XMS_ITS | Referral Summary ---
Author Organization [facility] [address] Address [address] [place] [address] Care Team Providers Care Wire Galvanizer Name Role Phone Deondre Abrams MD Primary Care Provider [phone] Encounters Date Type Department Care Team Description 09/18/2024 8:45 AM CDT Office Visit [facility] Cardiology at [address] [place] [address] Sandeep Shaw MD Coronary artery disease involving [place] coronary artery of [place] heart without angina pectoris (Primary Dx); Hx of CABG; Chronic systolic congestive heart failure (HCC); Permanent atrial fibrillation (HCC) from Last 3 Months Allergies Active Allergy Reactions Criticality Noted Date Comments Amitriptyline Hives,Rash Medium Midazolam Mental status changes,Hallucinations Medium (Versed) Reaction: CONFUSION, HALLUCINATION, , Medications liraglutide (VICTOZA) 0.6 mg/0.1 mL (18 mg/3 mL) injectionIndica tions:type 2 diabetes mellitus Inject 1.8 mg under the skin daily Indications: type 2 diabetes mellitus Active albuterol HFA (PROVENTIL HFA,VENTOLIN HFA) 90 mcg/actuation inhaler Inhale 2 puffs every 6 (six) hours as needed for wheezing Active esomeprazole DR (NexIUM) 40 mg capsule Take 1 capsule (40 mg total) by mouth 2 (two) times a day Active tamsulosin (FLOMAX) 0.4 mg extended release capsule Take 1 capsule (0.4 mg total) by mouth daily Active ascorbic acid (vitamin C) 1,000 mg tablet Take 1.5 tablets (1,500 mg total) by mouth daily Active vitamin E 400 unit capsule Take 1 capsule (400 Units total) by mouth daily Active calcium acetate (PHOSLO) 667 mg capsule Take 600 mg by mouth daily Active omega-3 fatty acids 1,000 mg capsule Take 2,000 mg by mouth 2 (two) times a day. Active cyanocobalamin (Vitamin B-12) 1,000 mcg sublingual tablet Take 1 tablet (1,000 mcg total) by mouth daily Active Trelegy Ellipta 100-62.5-25 mcg inhaler 3 Active Xarelto 20 mg tablet Take 1 tablet (20 mg total) by mouth with evening meal 3 Active aspirin 81 mg enteric coated tablet Take 1 tablet (81 mg total) by mouth daily Active Entresto 24-26 mg tablet TAKE 1 TABLET TWICE A DAY 180 tablet 3 4 Active metoprolol XL (TOPROL-XL) 25 mg extended release tablet TAKE 1 TABLET DAILY 90 tablet 2 4 Active spironolactone (ALDACTONE) 25 mg tablet TAKE 1 TABLET DAILY 90 tablet 2 4 Active atorvastatin (LIPITOR) 40 mg tablet Take 1 tablet (40 mg total) by mouth daily Active Jardiance 10 mg tablet Take 1 tablet (10 mg total) by mouth daily 3 Active Synthroid 150 mcg tablet Take 1 tablet (150 mcg total) by mouth roll handler before breakfast 0 Active Vesicare 10 mg tablet Take 1 tablet (10 mg total) by mouth daily Active vibegron (Gemtesa) 75 mg tablet Take 75 mg by mouth daily Active Active Problems Problem Noted Date Diagnosed Date Permanent atrial fibrillation 02/21/2024 Chronic systolic congestive heart failure 2022 Coronary artery disease invo lving [place] coronary artery of [place] heart without angina pectoris 08/16/2017 Hx of CABG 08/16/2017 Social History Tobacco Use Types Packs/Day Years Used Date Smoking Tobacco: Former Cigarettes 1 15 Q uit: 04/17/1973 Smokeless Tobacco: Never Tobacco Cessation:Counseling Given: Not Answered Alcohol Use Standard Drinks/Week Comments Yes 0 (1 standard drink = 0.6 oz pur e alcohol) Sex and Gender Information Value Date Recorded Sex Assigned at Not on file 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 Gender Identity Male 02/13/2021 6:14 PM CDT Sexual Orientation Straight 02/13/2021 6: 14 PM CDT Last Filed Vital Signs Vital Sign Reading Time Taken Comments Blood Pressure 120/68 09/18/2024 8:43 AM CDT Pulse 73 09/18/2024 8:43 AM CDT Temperature - - Respiratory Rate - - Oxygen Saturation 96% 09/18/2024 8:43 AM CDT Inhaled Oxygen Concentration - - Weight 97.5 kg (215 lb) 09/18/2024 8:43 AM CDT Height 177.8 cm (5' 10 ) 09/18/2024 8:43 AM CDT Body Mass Index 30.85 09/18/2024 8:43 AM CDT Plan of Treatment Not on [place] [address] MEDICARE [facility] MEDICARE [facility] Care Teams Wire Galvanizer Relationship Specialty Start Date End Date Deondre Abrams MD [address] INTER[address] MEDICINE [place], [place] [phone] PCP - General Internal Medicine 10/21/22
--- OUTSIDE RECORDS SUMMARY | 2024-09-21 19:53 | XMS_ITS | Clinical Summary ---
Author Organization [facility] [address] Address [address] [place] [address] Care Team Providers Care Rotating Equipment Specialist Name Role Phone Deondre Abrams MD Primary Care Provider [phone] Allergies Active Allergy Reactions Criticality Noted Date [...] 1 tablet (150 mcg total) by mouth environmental web crawler before breakfast 0 Active Vesicare 10 mg tablet Take 1 tablet (10 mg total) by mouth daily Active vibegron (Gemtesa) 75 mg tablet Take 75 mg by mouth daily Active Active Problems Problem Noted Date Diagnosed Date Permanent atrial fibrillation 02/21/2024 Chronic systolic congestive heart failure 2022 Coronary artery disease invo lving [place] coronary artery of [place] heart without angina pectoris 08/16/2017 Hx of CABG 08/16/2017 Encounters Date Type Department Care Team Description 09/18/2024 8:45 AM CDT Office Visit [facility] Cardiology at [address] [place] [address] Sandeep Shaw MD Coronary artery disease involving [place] coronary artery of [place] heart without angina pectoris (Primary Dx); Hx of CABG; Chronic systolic congestive heart failure (HCC); Permanent atrial fibrillation (HCC) from Last 3 Months Surgical History Surgery Date Site/Laterality Comments CATARACT EXTRACTION 1997 left eye 2004 right eye CHOLECYSTECTOMY 06/27/1994 - 06/26/1995 CORONARY ARTERY BYPASS GRAFT 06/27/1998 - 06/26/1999 JOINT REPLACEMENT 2006 Bilateral Knee Replacement Medical History Medical History Date Comments Hx Other Medical Diabetes Type I I Hypertension Hypertension GERD (gastroesophageal reflux disease) Benign prostatic hyperplasia Cataract 1998 Diabetes mellitus (HCC) Type 2 2009 Heart disease 1998 Sleep apnea 1998 Thyroid disease 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 Family History Medical History Relation Name Comments Heart disease Brother Juan Bacon Jr Heart attack Father Juan Bacon Sr Myocardial Infarction; Cancer Mother Ashlyn Bacon Heart attack Mother Ashlyn Bacon Myocardial Infa rction; Heart disease Mother Ashlyn Bacon Relation Name Status Comments Brother Juan Bacon Jr Father Juan Bacon Sr Alive Mother Ashlyn Bacon Alive Social History Tobacco Use Types Packs/Day Years Used Date Smoking Tobacco: Former Cigarettes 1 15 Q uit: 04/17/1973 Smokeless Tobacco: Never Tobacco Cessation:Counseling Given: Not Answered Alcohol Use Standard Drinks/Week Comments Yes 0 (1 standard drink = 0.6 oz pur e alcohol) Sex and Gender Information Value Date Recorded Sex Assigned at Not on file Legal Sex Male 11:[address] 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 Gender Identity Male 02/13/2021 6:14 PM CDT Sexual Orientation Straight 02/13/2021 6: 14 PM CDT Obstetrics History Last Filed Vital Signs Vital Sign Reading [...] 09/18/2024 8:43 AM CDT Plan of Treatment Health Maintenance Due Date Last Done Comments Depression Screening 1943 Fall Risk Assessment 1945 DTaP/Tdap/Td Vaccine (1 - Tdap) 11/12/1954 Hepatitis B Screening 11/12/1961 Pneumococcal vaccine 65+ (1 of 2 - PCV) 11/12/1962 Zoster Vaccine (1 of 2) 11/12/1993 Abdominal Aortic Aneurysm (AAA) Screen 11/12/2008 Well Visit 65+ 11/12/2008 Influenza Vaccine (#1) 2024 Insurance MEDICARE [facility] [employer] MEDIC[employer] [facility] [employer] Member Subscriber Plan / Payer ( fective 2017-Present) Name:Aly Bacon Relation to Subscriber:Self Name:Aly Bacon Payer ID:[id number] ([facility]) Type: ALLIANCE Address: [facility] [address] [place] [phone] Care Teams Rotating Equipment Specialist Relationship Specialty Start Date End Date Deondre Abrams MD [address] [facility] [address] [place] [phone] PCP - General Internal Medicine 10/21/22
[2024-09-21 20:10] LABS: Basophils Percent Auto 0.3 % (0.2-1.2); Eosinophils Absolute Auto 0.3 K/mm3 (0-0.3); Eosinophils Percent Auto 3.3 % (0-4.4); Hematocrit 42.1 % (42.0-52.0); Hemoglobin 13.5 g/dL (14.0-18.0); Immature Granulocyte Absolute 0.06 K/mm3 (0.00-0.031); Immature Granulocyte Percent A 0.8 % (0-0.5); Lymphocytes Absolute Auto 1.94 K/mm3 (0.9-3.2); Lymphocytes Percent Auto 24.3 % (18.3-44.2); Mean Corpuscular HGB Conc 32.1 g/dl (32-36); Mean Corpuscular Hemoglobin 27.5 pg (26-34); Mean Corpuscular Volume 85.7 fl (80-100); Mean Platelet Volume 9.9 fl (7.4-10.4); Monocytes Absolute Auto 0.8 K/mm3 (0.1-0.6); Monocytes Percent Auto 9.6 % (2.6-8.5); Neutrophils Absolute Auto 4.9 K/mm3 (1.3-6.7); Neutrophils Percent Auto 61.7 % (45.5-73.1); Platelet Count Result 268 k/mm3 (150-375); Red Blood Count 4.91 M/mm3 (4.6-6.20); Red Cell Distribution Width 15.9 % (11.5-14.5)
[2024-09-21 20:24] LABS: INR 1.4; Prothrombin Time 17.9 Seconds (11.1-14.7)
[2024-09-21 20:25] LABS: Partial Thromboplastin Time 34.8 Seconds (22.3-36.8)
[2024-09-21 20:27] LABS: Alanine Aminotransferase 16 U/L (6-50); Albumin Level 4.2 g/dL (3.5-5.1); Alkaline Phosphatase 124 U/L (38-126); Anion Gap 11 mmol/L (4-12); Aspartate Amino Transferase 18 U/L (17-59); Bilirubin,Total 0.4 mg/dL (0.2-1.3); Blood Urea Nitrogen 15 mg/dL (9-20); Calcium 9.1 mg/dL (8.4-10.2); Carbon Dioxide 21 mmol/L (22-30); Chloride 103 mmol/L (98-107); Estimated CRCL calculation 52 ml/min; Estimated Glomerular Filt Rate 60; Glucose 191 mg/dL (65-110); Lipase 20 U/L (23-300); Potassium 4.1 mmol/L (3.4-5.0); Sodium 135 mmol/L (137-145)
[2024-09-21 20:38] LABS: Troponin I < 0.012 ng/mL (0.000-0.034)
--- NOTE | 2024-09-21 22:52 | ECG_ITS ---
Test Date: 2024-09-21 22:57:49 Measurements Intervals Kerrick Rate: 69 P: 0 WI: 0 QRS: -60 QRSD: 126 T: 20 QT: 399 QTc: 429 Interpretive Statements ATRIAL FLUTTER/TACHYCARDIA LEFT ANTERIOR FASCICULAR BLOCK [QRS AXIS <= -45, QR IN I, RS IN II] POSSIBLE ANTERIOR MYOCARDIAL INFARCTION , PROBABLY OLD [30 ms Q WAVE IN V3/V4, OR R < 0.2 mV IN V4] ABNORMAL ECG Electronically Signed On 09-22-2024 10:01:27 CDT by Mac Gutierrez M.D.
--- OUTSIDE RECORDS SUMMARY | 2024-09-21 23:05 | XMS_ITS | Referral Summary ---
Author Organization [facility] [address] Address [address] [place] [address] Care Team Providers Care Die Cutting Machine Operator Name Role Phone Deondre Abrams MD Primary Care Provider [phone] Encounters Date Type Department Care Team Description 09/18/2024 8:45 AM CDT Office Visit [facility] Cardiology at [address] [place] [address] Sandeep Shaw MD Coronary artery disease involving [place] coronary artery of [place] heart without angina pectoris (Primary Dx); Hx [...] 1 tablet (150 mcg total) by mouth sales project manager before breakfast 0 Active Vesicare 10 mg tablet Take 1 tablet (10 mg total) by mouth daily Active vibegron (Gemtesa) 75 mg tablet Take 75 mg by mouth daily Active Active Problems Problem Noted Date Diagnosed Date Permanent atrial fibrillation 02/21/2024 Chronic systolic congestive heart failure 2022 Coronary artery disease invo lving [place] coronary artery of [place] heart without angina pectoris 08/16/2017 Hx of [...] on file 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
--- OUTSIDE RECORDS SUMMARY | 2024-09-21 23:05 | XMS_ITS | Continuity of Care Document ---
Author Organization [facility] Address [address] [place] [address] Phone Care Team Providers Care Burglar Alarm Inspector Name Role Phone Peters OD, Primitivo Unavailable Unavailable Advance Directives Directive Yes / No Effective Date File Name No Information Encounters Encounter Description Practice Location Reason(s) For Visit Diagnoses Date Provider Providers Copied on Encounter [facility], [address], [place], [place], [id number], [place] tel:[phone] [facility] No Information Pernell-0 2-200 4 Peters OD Primitivo. [address] [facility] , [address], [place], [address], [place]. tel:[phone] Family History Family Member Type Diagnosis Age At Onset No Information Payers Payer name Insurance type Covered libertarian ID Authoriza tion(s) No Information Social History [...]
--- OUTSIDE RECORDS SUMMARY | 2024-09-21 23:05 | XMS_ITS | Clinical Summary ---
Author Organization [facility] [address] Address [address] [place] [address] Care Team Providers Care Landfill Gas Collection System Operator Name Role Phone Deondre Abrams MD Primary Care Provider [phone] Allergies Active Allergy Reactions Criticality Noted Date [...] 1 tablet (150 mcg total) by mouth stoneworking belt sander before breakfast 0 Active Vesicare 10 mg tablet Take 1 tablet (10 mg total) by mouth daily Active vibegron (Gemtesa) 75 mg tablet Take 75 mg by mouth daily Active Active Problems Problem Noted Date Diagnosed Date Permanent atrial fibrillation 02/21/2024 Chronic systolic congestive heart failure 2022 Coronary artery disease invo lving [place] coronary artery of [place] heart without angina pectoris 08/16/2017 Hx of CABG 08/16/2017 Encounters Date Type Department Care Team Description 09/18/2024 8:45 AM CDT Office Visit [facility] Cardiology at [address] [place] [address] Sandeep Shaw MD Coronary artery disease involving [place] coronary artery of [place] heart without angina pectoris (Primary Dx); Hx [...] on file Legal 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 Gender Identity Male 02/13/2021 6:14 PM CDT [...] 11/12/2008 Influenza Vaccine (#1) 2024 Insurance MEDICARE [facility] MEDICARE [facility] Member Subscriber Plan / Payer ( fective 2017-Present) Name:Aly Bacon Relation to Subscriber:Self Name:Aly Bacon Payer ID:[id number] ([facility]) Type: ALLIANCE Address: [facility] [id number] [place] [id number] Care Teams Landfill Gas Collection System Operator Relationship Specialty Start Date End Date Deondre Abrams MD [address] [facility] [address] [place] [phone] PCP - General Internal Medicine 10/21/22
[2024-09-21 23:14] LABS: Lactic Acid Reflex 1.3 mmol/L (0.7-2.0)
[2024-09-21 23:15] VITALS: BP 110/75; PULSE 72; RESP 16; O2SAT 92; O2SAT 99
[2024-09-21 23:27] LABS: Troponin I 0.012 ng/mL (0.000-0.034)
[2024-09-21 23:40] LABS: Influenza A QL RT-PCR Negative (Negative); Influenza B QL RT-PCR Negative (Negative); RSV RNA, RT-PCR Negative (Negative); SARS-CoV-2 RNA PCR Negative (Negative)
--- NOTE | 2024-09-21 23:42 | ED_ITS ---
HPI - Chest Pain General Chief Complaint: Chest Pain Stated Complaint: Chest apin Time Seen by Provider: 09/21/24 22:50 History of Present Illness HPI narrative: Patient is an 78-year-old male who presents to the ER with complaints of intermittent chest pain that started earlier today. He reports he has intermittent chest pain every day, but this is different and it's a band across my chest. Pt is followed by a [employer] and b [employer] worker whom he had an appointment with yesterday and reports ?everything looked good. He denies any shortness of breath but endorses a recent cough. Patient denies fevers, back pain, abdominal pain, lower extremity swelling. He endorses a history of atrial fibrillation, diabetes, high cholesterol, and takes a blood thinner every day. Related Data Home Medications ?Medication ?Instructions ?Recorded ?Confirmed ?Last Taken ?Type calcium carbonate 600 mg PO DAILY 06/12/19 07/30/24 05/01/23 09:00 History vibegron 75 mg tablet (Gemtesa) 75 mg PO DAILY 12/08/21 07/30/24 05/01/23 09:00 History ascorbic acid (vitamin C) 1,500 mg 1 tablet PO DAILY 09/24/22 07/30/24 05/01/23 09:00 History tablet omega-3 fatty acids-vitamin E 2 cap PO BID 09/24/22 07/30/24 05/01/23 09:00 History 1,000 mg capsule Vesicare 10 mg PO HS 09/27/22 07/30/24 04/30/23 21:00 History vitamin E 400 unit PO DAILY 09/27/22 07/30/24 05/01/23 09:00 History aspirin 81 mg tablet,delayed 81 mg PO DAILY 10/06/22 07/30/24 05/01/23 09:00 History release (Adult Low Dose Aspirin) Centrum Silver Men 1 tablet PO DAILY 05/01/23 07/30/24 05/01/23 09:00 History cyanocobalamin (vitamin B-12) 1,000 mcg PO DAILY 05/01/23 07/30/24 05/01/23 09:00 History 1,000 mcg tablet cholecalciferol (vitamin D3) 50 50 mcg PO DAILY 02/23/24 07/30/24 Unknown History mcg (2,000 unit) capsule Allergies Allergy/AdvReac Type Severity Reaction Status Date / Time midazolam Allergy Severe HALLUCINATI Verified 09/21/24 19:52 ONS amitriptyline Allergy Unknown unknown Verified 09/21/24 19:52 Review of Systems 2 Review of Systems: All systems reviewed & are unremarkable except as noted in HPI and below PMFSH Past Medical History Medical History BMI 33.0-33.9,adult Encounter for Medicare annual wellness exam BMI 32.0-32.9,adult Vitamin D deficiency Encounter for routine adult health examination without abnormal findings BMI 30.0-30.9,adult Encounter for routine adult health examination with abnormal findings Chronic anemia Obstructive sleep apnea treated with BiPAP Paroxysmal atrial fibrillation Chronic anticoagulation Short-term memory loss Moderate mitral valve regurgitation Chronic obstructive pulmonary disease Hypothyroidism Weight loss Depression BMI 27.0-27.9,adult BMI 26.0-26.9,adult Orthostatic hypotension Pleural effusion on right Recurrent aspiration events Unintentional weight loss Encounter to establish care Obesity HERACLIO (obstructive sleep apnea) Surgical History Surgical History History of colonoscopy with polypectomy History of four vessel coronary artery bypass graft (1998) History of bilateral knee replacement History of cholecystectomy History of cataract extraction History of tonsillectomy History of cardiac catheterization Family History Family History Father Family history of heart disease in male family member before age 55 Diabetes mellitus Family history of coronary artery disease Mother Family history of heart disease in male family member before age 55 Diabetes mellitus Family history of bronchitis Family history of coronary artery disease Family history of malignant neoplasm of breast in first degree relative Sibling Patient's sister is in good health Family history of coronary artery disease Social History Social History Social History: Surrogate medical decision maker: Zarina Bacon, spouse. Code status: Do not resuscitate. Smoking packs per day: 1 Smoking cigarettes per day: 20.0 Years smoked: 25 Smoking pack-years: 25.00 Smoking status: Former smoker Tobacco type: cigarettes, pipe and cigars Second hand tobacco smoke exposure: No Smoking end date: 11/25/73 Alcohol intake: former Substance use: never Substance use type: does not use Lack of Transportation: No Lack of Food: Never True Current Housing: I Have Housing Concerned About Future Housing: No Difficulty Paying Gas/Electric Bills: No Difficulty Paying for Meds: No Currently Unemployed: No Education: Associate Degree Difficulty w/ Childcare or Family Care: No Living arrangements: with family Additional living arrangements comments: Lives with spouse in [place]. They have 3 children. Occupation/Education: retired Additional occupation/education comments: Retired from [email or web address]. Spiritual care concerns: No Exam 2 Narrative: GENERAL: Well appearing, well-nourished, non-toxic, in no acute distress. HEAD: Normocephalic, atraumatic. NECK: Supple. No adenopathy, no masses. RESPIRATORY: Airway patent, respirations nonlabored. Clear to auscultation bilaterally, no rales, rhonchi, wheezing. CARDIOVASCULAR: Regular rate and rhythm,+ murmur, No rubs, or gallops. Peripheral pulses 2+ and equal bilaterally. ABDOMINAL: Soft, nontender, nondistended, no hepatosplenomegaly. Normoactive BS. MUSCULOSKELETAL: Moves all extremities. Strength/ROM intact without gross deformities. SKIN: Warm, dry, normal color. No rashes. NEURO: A&O X3. Speech clear. Cranial nerves II-XII intact. No ataxic movements. PSYCHIATRIC: Appropriate mood and affect. Normal interaction. Course Vital Signs Vital signs: Vital Signs Temperature 36.2 C L 09/21/24 19:52 Pulse Rate 84 09/21/24 19:52 Respiratory Rate 18 09/21/24 19:52 Blood Pressure 128/53 L 09/21/24 19:52 Pulse Oximetry 99 09/21/24 19:52 Oxygen Delivery Room Air 09/21/24 19:52 Temperature 36.2 C L 09/21/24 19:52 Pulse Rate 72 09/21/24 23:15 Respiratory Rate 16 09/21/24 23:15 Blood Pressure 110/75 09/21/24 23:15 Pulse Oximetry 99 09/21/24 23:15 Oxygen Delivery Room Air 09/21/24 23:15 MDM - Chest Pain MDM Narrative Medical decision making narrative: Patient is an 78-year-old male who presents to the ER with complaints of intermittent chest pain that started earlier today. He reports he has intermittent chest pain every day, but this is different and it's a band across my chest. Pt is followed by a [employer] b [employer] worker whom he had an appointment with yesterday and reports ?everything looked good. He denies any shortness of breath but endorses a recent cough. Patient denies fevers, back pain, abdominal pain, lower extremity swelling. He endorses a history of atrial fibrillation, diabetes, high cholesterol, and takes a blood thinner every day. Labs Ordered: CBC, CMP, troponin, lactic acid, lipase, PTT, INR Imaging Ordered: Chest x-ray Medications Ordered: Augmentin p.o., azithromycin p.o. Results: Patient's chest x-ray indicates Left basilar pneumonia. Diagnosis: Community-acquired pneumonia Risks: HEART score: moderate risk HEART Score for Major Cardiac Events from [employer] on 09/21/2024 All calculations should be rechecked by clinician prior to use RESULT SUMMARY: 4 points Moderate Score (4-6 points) Risk of MACE of 12-16.6%. INPUTS: History ?> 1 = Moderately suspicious EKG ?> 0 = Normal Age ?> 2 = >=5 Risk factors ?> 1 = 1-2 risk factors Initial troponin ?> 0 = <=Normal limit CURB-65: low risk CURB-65 Score for Pneumonia Severity from [employer] on 09/21/2024 All calculations should be rechecked by clinician prior to use RESULT SUMMARY: 1 points Low risk group: 2.7% 30-day mortality. Consider outpatient treatment. INPUTS: Confusion ?> 0 = No BUN >19 mg/dL (>7 mmol/L urea) ?> 0 = No Respiratory Rate >=0 ?> 0 = No Systolic BP <90 mmHg or Diastolic BP <=0 mmHg ?> 0 = No Age >=5 ?> 1 = Yes Patient Education/Shared MDM: Although patient's heart score is moderate risk, is reassuring that his chest pain is unrelated to today's ER visit, as he saw his [employer] and b gang worker yesterday, his troponins are normal and stable, and he is already on blood thinners and cardiac medications. Results of lab work and imaging shared with patient. Shared decision making between patient, his , and LONG TERM CARE ADMINISTRATOR. Patient and his verbalized they are comfortable bringing patient home on p.o. antibiotics. He was advised to follow-up with his PCP as soon as possible. She will be discharged home with a prescription for Augmentin and Azithromycin. Strict return precautions provided. His reports she is a retired RN and I will take good care of him at home! Patient and his verbalize understanding and are in agreement with plan. Vital signs stable at time of discharge. All questions answered. Differential Diagnosis Differential diagnosis: Likely atypical chest pain, st elevation myocardial infarction, costochondritis, chest pain and other (pneumonia, ) Lab Data Attestation: I reviewed the patient's lab results. 09/21/24 20:03 09/21/24 20:04 Labs: Lab Results 09/21/24 09/21/24 09/21/24 Range/Units 20:03 20:04 23:01 WBC 8.0 (4.5-10.0) K/mm3 RBC 4.91 (4.6-6.20) M/mm3 Hgb 13.5 L (14.0-18.0) g/dL Hct 42.1 (42.0-52.0) % MCV 85.7 (80-100) fl MCH 27.5 (26-34) pg MCHC 32.1 (32-36) g/dl RDW 15.9 H (11.5-14.5) % Plt Count 268 (150-375) k/mm3 MPV 9.9 (7.4-10.4) fl Immature Gran % (Auto) 0.8 H (0-0.5) % Neut % (Auto) 61.7 (45.5-73.1) % Lymph % (Auto) 24.3 (18.3-44.2) % [place] % (Auto) 9.6 H (2.6-8.5) % Eos % (Auto) 3.3 (0-4.4) % Baso % (Auto) 0.3 (0.2-1.2) % Lymph # (Auto) 1.94 (0.9-3.2) K/mm3 [place] # (Auto) 0.8 H (0.1-0.6) K/mm3 Eos # (Auto) 0.3 (0-0.3) K/mm3 Baso # (Auto) 0.0 (0.0-0.1) K/mm3 Abs Immat Gran (auto) 0.06 H (0.00-0.031) K/mm3 Absolute Neuts (auto) 4.9 (1.3-6.7) K/mm3 Absolute Nucleated RBC 0.000 (0.0-0.012) K/mm3 Nucleated RBC % 0.0 (0.0-0.2) % PT 17.9 H (11.1-14.7) Seconds INR 1.4 APTT 34.8 (22.3-36.8) Seconds Sodium 135 L (137-145) mmol/L Potassium 4.1 (3.4-5.0) mmol/L Chloride 103 (98-107) mmol/L Carbon Dioxide 21 L (22-30) mmol/L Anion Gap 11 (4-12) mmol/L BUN 15 D (9-20) mg/dL Creatinine 1.17 (0.7-1.3) mg/dL Estim Creat Clear Calc 52 ml/min Estimated GFR 60 (59 - ) Glucose 191 H (65-110) mg/dL Lactic Acid 1.3 (0.7-2.0) mmol/L Calcium 9.1 (8.4-10.2) mg/dL Total Bilirubin 0.4 (0.2-1.3) mg/dL AST 18 (17-59) U/L ALT 16 (6-50) U/L Alkaline Phosphatase 124 (38-126) U/L Troponin I < 0.012 0.012 (0.000-0.034) ng/mL Total Protein 7.0 (6.3-8.2) g/dL Albumin 4.2 (3.5-5.1) g/dL Lipase 20 L (23-300) U/L Influenza A (RT-PCR) Negative (Negative) Influenza B (RT-PCR) Negative (Negative) RSV (RT-PCR) Negative (Negative) SARS-CoV-2 RNA (RT-PCR) Negative (Negative) Imaging Data Attestation: I personally reviewed and interpreted this imaging study as follows: Radiologist's impression: Impressions Chest X-Ray 09/21/24 20:21 IMPRESSION: Left basilar pneumonia. Discharge Plan Discharge Clinical Impression: Atypical chest pain, Costalchondritis, Community acquired pneumonia Patient Disposition: Home, Self-Care Condition: Stable Instructions: Antibiotic Form, Costochondritis (ED), Community Acquired Pneumonia (ED) Additional Instructions: Please return to the ER with any worsening symptoms. Follow-up with your primary care provider as soon as possible. Take all medications as prescribed, including regularly scheduled medications. Please complete your full doses of antibiotics. Patient Language: British Prescriptions: New azithromycin 250 mg tablet See Rx Instructions .ROUTE .COMPLEX Qty: 6 0RF Rx Instructions: For 250 mg dose pack: take 500 mg today (day 1), then 250 mg for 4 days (days 2-5) amoxicillin-pot clavulanate 875-125 mg tablet 1 tablet PO Q12H Qty: 20 0RF No Action calcium carbonate 600 mg calcium (1,500 mg) tablet 600 mg PO DAILY Gemtesa 75 mg tablet 75 mg PO DAILY cholecalciferol (vitamin D3) 50 mcg (2,000 unit) capsule 50 mcg PO DAILY aspirin [Adult Low Dose Aspirin] 81 mg tablet,delayed release (DR/EC) 81 mg PO DAILY Vesicare 10 mg PO HS vitamin E 400 unit PO DAILY cyanocobalamin (vitamin B-12) 1,000 mcg Tablet 1,000 mcg PO DAILY Centrum Silver Men 1 tablet PO DAILY metoprolol succinate [Toprol XL] 25 mg Tablet Extended Release 24 Hr 25 mg PO QAM 30 Days Qty: 30 0RF Entresto 24-26 mg Tablet 1 tablet PO Q12HR 30 Days Qty: 60 0RF spironolactone 25 mg Tablet 25 mg PO QAM 30 Days Qty: 30 0RF ascorbic acid (vitamin C) 1,500 mg Tablet 1 tablet PO DAILY omega-3 fatty acids-vitamin E 1,000 mg Capsule 2 cap PO BID esomeprazole magnesium 40 mg capsule,delayed release(DR/EC) See Rx Instructions .ROUTE .COMPLEX Qty: 180 1RF Dose Instruction: TAKE 1 CAPSULE TWICE DAILY Rx Instructions: TAKE 1 CAPSULE TWICE DAILY Jardiance 10 mg tablet 10 mg PO DAILY Qty: 90 3RF Rx Instructions: Please D/C shannan Gupta. Thank you atorvastatin 40 mg tablet See Rx Instructions .ROUTE .COMPLEX Qty: 90 1RF Dose Instruction: TAKE 1 TABLET DAILY Rx Instructions: TAKE 1 TABLET DAILY levothyroxine [Synthroid] 150 mcg tablet See Rx Instructions .ROUTE .COMPLEX Qty: 90 0RF Dose Instruction: TAKE 1 TABLET AT BEDTIME Rx Instructions: TAKE 1 TABLET AT BEDTIME tamsulosin 0.4 mg capsule See Rx Instructions .ROUTE .COMPLEX Qty: 90 1RF Dose Instruction: TAKE 1 CAPSULE AT BEDTIME Rx Instructions: TAKE 1 CAPSULE AT BEDTIME Franchesca Ellipta 100-62.5-25 mcg blister with device See Rx Instructions .ROUTE .COMPLEX Qty: 180 1RF Dose Instruction: USE 1 INHALATION ORALLY DAILY Rx Instructions: USE 1 INHALATION ORALLY DAILY nystatin-triamcinolone 100,000-0.1 unit/g-% cream 1 applic topical TID Qty: 30 0RF rivastigmine 4.6 mg/24 hour patch 24 hour See Rx Instructions .ROUTE .COMPLEX Qty: 90 1RF Dose Instruction: APPLY 1 PATCH (4.6MG) TRANSDERMALLY DAILY Rx Instructions: APPLY 1 PATCH (4.6MG) TRANSDERMALLY DAILY Xarelto 20 mg tablet See Rx Instructions .ROUTE .COMPLEX Qty: 90 1RF Dose Instruction: TAKE 1 TABLET DAILY AT 5PM Rx Instructions: TAKE 1 TABLET DAILY AT 5PM Victoza 3-Uday 0.6 mg/0.1 mL (18 mg/3 mL) pen injector See Rx Instructions .ROUTE .COMPLEX Qty: 27 1RF Dose Instruction: INJECT 1.8MG SUBCUTANEOUSLYDAILY Rx Instructions: INJECT 1.8MG SUBCUTANEOUSLYDAILY Follow-up/Referrals: Deondre Abrams MD [Primary Care Provider] - Time of Disposition: 00:46
--- NOTE | 2024-09-22 00:22 | PC.NURSE ---
TIN rondon discontinue ASA medication at this time.
[2024-09-22] MEDS: AZITHROMYCIN 250 MG TABLET 500 MG PO (01:01)
[2024-09-22] MEDS: AMOXICILLIN/CLAVULANATE K 875-125 MG TAB 1 TABLET PO (01:01)
[2024-09-22 01:03] VITALS: BP 102/68; PULSE 75; RESP 20; O2SAT 98
== END 2024-09-22 01:19 | disposition home or self-care (01) ==
PROVIDERS: Emergency Medicine; Emergency Provider Registered Nurse; PCP Internal Medicine
DX: M94.0 Chondrocostal junction syndrome [Tietze] (principal); J18.9 Pneumonia, unspecified organism; I48.0 Paroxysmal atrial fibrillation; J44.9 Chronic obstructive pulmonary disease, unspecified; E03.9 Hypothyroidism, unspecified; Z87.891 Personal history of nicotine dependence; Z20.822 Contact with and (suspected) exposure to COVID-19
CPT/HCPCS: 36415; 71046; 80053; 83605; 83690; 84484; 85025; 85610; 85730; 87637; 93005; 99284; A9270